=== PATIENT | female | born 1960 | race Caucasian/White ===

== ENCOUNTER 2016-12-09 15:41 | Inpatient (IN) ==
[2016-12-09] MEDS ORDERED: Ipratropium/Albuterol Neb 3 ML IH ONE ×2 (16:06→19:55)
[2016-12-09] MEDS ORDERED: methylPREDNISolone 125 MG/2 ML VIAL IVP ONE (16:06)
--- NOTE | 2016-12-09 16:11 | Emergency Department Note ---
Disposition Clinical Impression: COPD exacerbation Chest pain Qualifiers: Chest pain type: unspecified Qualified Code(s): R07.9 - Chest pain, unspecified Disposition: Admitted As Inpatient Condition: Fair Referrals: Jarod Hilton MD [Primary Care Provider] - Forms: ED Satisfaction Letter Time of Disposition: 18:18 SOB HPI - General Chief Complaint: ED Shortness of Breath/Dyspnea Stated Complaint: Cough and SOB Time Seen by Provider: 12/09/16 15:58 Source: patient Limitations: no limitations Nursing Notes Reviewed: Yes Vital Signs Reviewed: Yes - History of Present Illness Patient is a 56-year-old female who presents to [facility] ED with chief concern for difficulty breathing. States her symptoms have worsened over the last day. She has had a continuous cough and shortness of breath ever since she was hospitalized and then seen at the urgent care. States she has been on steroids for a long time now and has many inhalers at home for her COPD. She has not on any home oxygen. Patient states over the last day, she has had a lot of coughing fits and has trouble just walking a few feet. He has also been having some central chest pain that is described as "an elephant sitting on my chest or being smothered by a pillow". States this has been worse over the last 3-4 days but has also been intermittent over the last several months. Patient has had 3 prior heart catheterizations, most recent of which was 1-2 years ago. States they do not find anything to stent. Denies any nausea, vomiting, fever or chills. Patient was hospitalized back in October for her COPD exacerbation. She was then seen at urgent care on November 21 and prescribed azithromycin and steroids. States nothing has helped and she just started getting worse yesterday. Pt Subjective Complaint: shortness of breath, cough Onset (ago): day(s) Context: recent illness, occurred during exertion Severity: severe Consistency/Duration: gradually worsening Improves with: nothing Worsens with: exertion Known history of: COPD, asthma Associated symptoms: Reports: chest pain, cough. Denies: nausea/vomiting Treatment prior to arrival: none Cough present: Yes Cough Description: Involuntary, Hacking Cough Frequency: Continuous Sputum production: No Sputum Amount: None - Related Data Home oxygen amount: none Home Medications Medication Instructions Recorded Confirmed Albuterol Sulfate [Ventolin Hfa] 2 puff IH DAILY PRN 08/16/15 08/12/16 FLUoxetine HCl [Prozac] 20 mg PO DAILY 05/07/16 08/12/16 Omalizumab [XOLAIR (For Outpatient 150 mg SQ Q2W 05/11/16 08/12/16 Infusion)] Alprazolam [Xanax 0.5 MG Tablet] 0.5 mg PO TID 11/21/16 11/21/16 Furosemide [Lasix] 20 mg PO DAILY 11/21/16 11/21/16 Ipratropium/Albuterol Neb [Duoneb] 3 ml IH Q4HR 11/21/16 11/21/16 Dexlansoprazole [Dexilant] 30 mg PO DAILY 12/09/16 12/09/16 Fluticasone/Salmeterol [Advair 1 each IH BID 12/09/16 12/09/16 250-50 Diskus] Montelukast [Singulair] 10 mg PO QPM 12/09/16 12/09/16 Tizanidine HCl 4 mg PO TID PRN 12/09/16 12/09/16 Previous Rx's Medication Instructions Recorded Tiotropium [Spiriva] 18 mcg IH 0700 #30 capsule 08/18/15 Allergies Allergy/AdvReac Type Severity Reaction Status Date / Time aspirin Allergy Mild Wheezing Verified 12/09/16 15:50 milk Allergy See Verified 12/09/16 15:50 Comments Pneumococcal Vaccine AdvReac Anxiety Verified 12/09/16 15:50 quetiapine [From Seroquel] AdvReac Agitated Verified 12/09/16 15:50 All systems ED: reviewed and negative except as stated. Past Medical History - Past Medical History Attestation: Yes The following information was validated with the patient. 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 - Social History Smoking Status: Never smoker Smokeless Tobacco Status: No Alcohol use: Reports: none Drug use: Reports: none Physical Exam - General Limitations: no limitations General appearance: alert, in no apparent distress - Head Head exam: atraumatic, normocephalic, normal inspection - Eye Eye exam: Present: normal appearance, PERRL, EOMI - ENT ENT exam: normal exam, normal oropharynx, mucous membranes moist - Neck Neck exam: Present: normal inspection, full ROM, trachea midline - Chest Chest inspection: Present: normal inspection, symmetric chest wall rise - Respiratory Respiratory exam: Present: wheezes (Diffusely) - Cardiovascular Cardiovascular exam: Present: regular rate, normal rhythm - Abdominal Exam Abdominal exam: Present: soft, Non-Tender. Absent: tenderness, distention, guarding, rebound, rigidity - Extremities Exam Extremities exam: Present: normal inspection, full ROM. Absent: tenderness, pedal edema - Back Exam Back exam: Present: normal inspection, full ROM. Absent: tenderness - Neurological Exam Neurological exam: Present: alert, oriented X3 - Psychiatric Psychiatric exam: Present: normal affect, normal mood - Skin Skin exam: Present: warm, dry, intact, normal color Course Course Narrative: Patient seen and examined. Cough with history of COPD and asthma. One recent hospitalization as well as visit to urgent care. Patient has been on multiple doses of antibiotics and prednisone over the last several months. Also having worsening chest pressure. Cardiopulmonary workup initiated. We will give triple DuoNeb treatment and 125 mg of Solu-Medrol. - Reevaluation(s) Reevaluation #1: Patient received her DuoNeb treatments. On reevaluation, she is still wheezing diffusely bilaterally and very tight. Her oxygen saturation are still around 90 %. With concern for this hypoxemia and her failing outpatient treatment, will admit to hospitalist service for COPD exacerbation and chest pain rule out ACS. I spoke with the hospitalist Yanna Kelly who has accepted patient for admission. Time: 18:17 Vital Signs Temperature 97.8 F 12/09/16 15:45 Pulse Rate 110 12/09/16 15:45 Respiratory Rate 18 12/09/16 15:45 Blood Pressure 144/98 12/09/16 15:45 O2 Sat by Pulse Oximetry 92 L 12/09/16 15:45 Temperature 97.8 F 12/09/16 15:45 Pulse Rate 110 12/09/16 15:45 Respiratory Rate 18 12/09/16 17:06 Blood Pressure 144/98 12/09/16 15:45 O2 Sat by Pulse Oximetry 92 L 12/09/16 17:06 Oxygen Delivery Oxygen Delivery Room Air Shortness of Breath/Dyspnea - Medical Records Medical records reviewed: Yes I reviewed the patient's medical records. - Lab Data Lab results reviewed: Yes I reviewed the patient's lab results. Result diagrams: 12/09/16 16:25 12/09/16 16:25 Lab Results 12/09/16 12/09/16 12/09/16 Range/Units 16:25 16:25 16:25 WBC 7.6 (4.3-11.1) K/mcL RBC 5.07 H (3.82-4.97) M/mcL Hgb 13.3 (11.5-15.4) g/dL Hct 40.8 (35.3-44.9) % MCV 80.5 L (83.0-100.0) fL MCH 26.2 L (28.0-33.3) pg MCHC 32.6 (31.6-35.5) g/dL RDW 13.5 (11.5-14.5) % Plt Count 220 (140-400) K/mcL MPV 10.8 (9.4-12.4) fL Immature Gran % 0.4 (0-4) % Seg Neutrophils % 55.5 % Lymphocytes % 31.7 % Monocytes % 5.8 % Eosinophils % 5.9 % Basophils % 0.7 % Neutrophils # 4.2 (1.6-8.9) K/mcL Lymphocytes # 2.4 (0.6-4.6) K/mcL Monocytes # 0.4 (0.0-1.3) K/mcL Eosinophils # 0.5 (0.0-0.6) K/mcL Basophils # 0.1 (0.0-0.2) K/mcL D-Dimer (0-500) ng/mLFEU Sodium 141 (136-145) mEq/L Potassium 3.9 (3.5-4.5) mEq/L Chloride 108 (98-109) mEq/L Carbon Dioxide 22 (19-29) mEq/L BUN 10 (7-20) mg/dL Creatinine 0.86 (0.57-1.11) mg/dL Est GFR ( Amer) > 60 (> 60) Est GFR (Non-Af Amer) > 60 (> 60) BUN/Creatinine Ratio 12 (6-26) Glucose 87 (70-99) mg/dL Calculated Osmolality 290 (280-300) Lactic Acid (0.5-2.2) mmol/L Calcium 8.6 (8.6-10.8) mg/dL Troponin I 0.01 (0-0.03) ng/mL B-Natriuretic Peptide (0-100) pg/mL 12/09/16 12/09/16 12/09/16 Range/Units 16:25 16:25 16:41 WBC (4.3-11.1) K/mcL RBC (3.82-4.97) M/mcL Hgb (11.5-15.4) g/dL Hct (35.3-44.9) % MCV (83.0-100.0) fL MCH (28.0-33.3) pg MCHC (31.6-35.5) g/dL RDW (11.5-14.5) % Plt Count (140-400) K/mcL MPV (9.4-12.4) fL Immature Gran % (0-4) % Seg Neutrophils % % Lymphocytes % % Monocytes % % Eosinophils % % Basophils % % Neutrophils # (1.6-8.9) K/mcL Lymphocytes # (0.6-4.6) K/mcL Monocytes # (0.0-1.3) K/mcL Eosinophils # (0.0-0.6) K/mcL Basophils # (0.0-0.2) K/mcL D-Dimer 449 (0-500) ng/mLFEU Sodium (136-145) mEq/L Potassium (3.5-4.5) mEq/L Chloride (98-109) mEq/L Carbon Dioxide (19-29) mEq/L BUN (7-20) mg/dL Creatinine (0.57-1.11) mg/dL Est GFR ( Amer) (> 60) Est GFR (Non-Af Amer) (> 60) BUN/Creatinine Ratio (6-26) Glucose (70-99) mg/dL Calculated Osmolality (280-300) Lactic Acid 1.1 (0.5-2.2) mmol/L Calcium (8.6-10.8) mg/dL Troponin I (0-0.03) ng/mL B-Natriuretic Peptide 27 (0-100) pg/mL - Radiology Data Radiology results reviewed: Yes I reviewed the patient's radiology results. Chest X-Ray 12/09/16 16:08 IMPRESSION: No acute cardiopulmonary disease is identified. D/ / Cordell Dong MD / Cordell Dong MD Interpreting Provider: Cordell Dong MD - EKG Data EKG attestation: Yes I reviewed and interpreted this EKG. EKG results narrative: EKG done at 1556 shows normal sinus rhythm with a rate of [address] elevation or depression. Patient has T-wave inversion in lead V2, III. Low voltage throughout.
[2016-12-09 16:37] LABS: Basophils # 0.1 K/mcL (0.0-0.2); Basophils % 0.7 %; Eosinophils # 0.5 K/mcL (0.0-0.6); Eosinophils % 5.9 %; Hematocrit 40.8 % (35.3-44.9); Hemoglobin 13.3 g/dL (11.5-15.4); Immature Granulocytes % 0.4 % (0-4); Lymphocytes # 2.4 K/mcL (0.6-4.6); Lymphocytes % 31.7 %; Mean Corpuscular HGB Conc 32.6 g/dL (31.6-35.5); Mean Corpuscular Hemoglobin 26.2 pg (28.0-33.3); Mean Corpuscular Volume 80.5 fL (83.0-100.0); Mean Platelet Volume 10.8 fL (9.4-12.4); Monocytes # 0.4 K/mcL (0.0-1.3); Monocytes % 5.8 %; Neutrophils # 4.2 K/mcL (1.6-8.9); Platelet Count 220 K/mcL (140-400); Red Blood Count 5.07 M/mcL (3.82-4.97); Red Cell Distribution Width 13.5 % (11.5-14.5); Segmented Neutrophils % 55.5 %
--- NOTE | 2016-12-09 16:45 | Emergency Department Note ---
Disposition Clinical Impression: COPD exacerbation, Chest pain Disposition: Admitted As Inpatient Condition: Fair General Adult HPI - General Chief complaint: ED Shortness of Breath/Dyspnea Stated complaint: Cough and SOB Time Seen by Provider: 12/09/16 15:58 Source: patient Limitations: no limitations - History of Present Illness Pain Scale: 7 - Related Data Home Medications Medication Instructions Recorded Confirmed Albuterol Sulfate [Ventolin Hfa] 2 puff IH Q4H PRN 08/16/15 12/09/16 FLUoxetine HCl [Prozac] 20 mg PO QAM 05/07/16 12/09/16 Omalizumab [XOLAIR (For Outpatient 150 mg SQ Q2W 05/11/16 08/12/16 Infusion)] Alprazolam [Xanax 0.5 MG Tablet] 0.5 mg PO TID 11/21/16 12/09/16 Furosemide [Lasix] 20 mg PO DAILY 11/21/16 12/09/16 Ipratropium/Albuterol Neb [Duoneb] 3 ml IH Q6H PRN 11/21/16 12/09/16 Dexlansoprazole [Dexilant] 30 mg PO DAILY 12/09/16 12/09/16 Fluticasone/Salmeterol [Advair 1 each IH BID 12/09/16 12/09/16 250-50 Diskus] Montelukast [Singulair] 10 mg PO QPM 12/09/16 12/09/16 Tizanidine HCl 4 mg PO TID PRN 12/09/16 12/09/16 Previous Rx's Medication Instructions Recorded Tiotropium [Spiriva] 18 mcg IH 0700 #30 capsule 08/18/15 Allergies Allergy/AdvReac Type Severity Reaction Status Date / Time aspirin Allergy Mild Wheezing Verified 12/09/16 15:50 milk Allergy See Verified 12/09/16 15:50 Comments Pneumococcal Vaccine AdvReac Anxiety Verified 12/09/16 15:50 quetiapine [From Seroquel] AdvReac Agitated Verified 12/09/16 15:50 Past Medical History - Past Medical History Medical history: Reports: asthma, COPD, GERD Surgical history: Reports: cholecystectomy, sinus surgery, CHARBEL/BSO, other Psychiatric history: Reports: anxiety, bipolar, depression, panic disorder 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 Hawthorne. The patient presents with shortness of breath, cough, and wheezing. She states that she has been sick since around . She is been seen at several hospitals. She has been admitted for this issue already. She has had a CTA of the chest for this issue which was negative. She saw pulmonology the beginning of this month and had PFTs. She presents today with the cough, shortness of breath, and wheezing and finds this constellation of symptoms to be significantly impacting her ADLs. On my physical examination she has got diffuse wheezing and frequent cough with inspiration. The PFTs imply a COPD type pattern. Clinical presentation seems consistent with a COPD exacerbation as a result of a likely viral illness given that the patient is complaining of postnasal drainage and sinus congestion and blowing her nose a lot within the last 24 hours. I am concerned she may require admission to the hospital given the severity of her symptoms. We will have to see how she responds to breathing treatments and what the lab workup shows us. Disposition will be based on diagnostic results and reevaluation. Time: 16:45 Vital Signs Temperature 97.8 F 12/09/16 15:45 Pulse Rate 110 12/09/16 15:45 Respiratory Rate 18 12/09/16 15:45 Blood Pressure 144/98 12/09/16 15:45 O2 Sat by Pulse Oximetry 92 L 12/09/16 15:45 Temperature 97.8 F 12/09/16 15:45 Pulse Rate 110 12/09/16 15:45 Respiratory Rate 16 12/09/16 20:00 Blood Pressure 138/88 12/09/16 20:00 O2 Sat by Pulse Oximetry 92 L 12/09/16 17:06 Oxygen Delivery Oxygen Delivery Room Air Medical Decision Making - Lab Data Result diagrams: 12/09/16 16:25 12/09/16 16:25 Lab Results 12/09/16 12/09/16 12/09/16 Range/Units 16:25 16:25 16:25 WBC 7.6 (4.3-11.1) K/mcL RBC 5.07 H (3.82-4.97) M/mcL Hgb 13.3 (11.5-15.4) g/dL Hct 40.8 (35.3-44.9) % MCV 80.5 L (83.0-100.0) fL MCH 26.2 L (28.0-33.3) pg MCHC 32.6 (31.6-35.5) g/dL RDW 13.5 (11.5-14.5) % Plt Count 220 (140-400) K/mcL MPV 10.8 (9.4-12.4) fL Immature Gran % 0.4 (0-4) % Seg Neutrophils % 55.5 % Lymphocytes % 31.7 % Monocytes % 5.8 % Eosinophils % 5.9 % Basophils % 0.7 % Neutrophils # 4.2 (1.6-8.9) K/mcL Lymphocytes # 2.4 (0.6-4.6) K/mcL Monocytes # 0.4 (0.0-1.3) K/mcL Eosinophils # 0.5 (0.0-0.6) K/mcL Basophils # 0.1 (0.0-0.2) K/mcL D-Dimer (0-500) ng/mLFEU Sodium 141 (136-145) mEq/L Potassium 3.9 (3.5-4.5) mEq/L Chloride 108 (98-109) mEq/L Carbon Dioxide 22 (19-29) mEq/L BUN 10 (7-20) mg/dL Creatinine 0.86 (0.57-1.11) mg/dL Est GFR ( Amer) > 60 (> 60) Est GFR (Non-Af Amer) > 60 (> 60) BUN/Creatinine Ratio 12 (6-26) Glucose 87 (70-99) mg/dL Calculated Osmolality 290 (280-300) Lactic Acid (0.5-2.2) mmol/L Calcium 8.6 (8.6-10.8) mg/dL Troponin I 0.01 (0-0.03) ng/mL B-Natriuretic Peptide (0-100) pg/mL 12/09/16 12/09/16 12/09/16 Range/Units 16:25 16:25 16:41 WBC (4.3-11.1) K/mcL RBC (3.82-4.97) M/mcL Hgb (11.5-15.4) g/dL Hct (35.3-44.9) % MCV (83.0-100.0) fL MCH (28.0-33.3) pg MCHC (31.6-35.5) g/dL RDW (11.5-14.5) % Plt Count (140-400) K/mcL MPV (9.4-12.4) fL Immature Gran % (0-4) % Seg Neutrophils % % Lymphocytes % % Monocytes % % Eosinophils % % Basophils % % Neutrophils # (1.6-8.9) K/mcL Lymphocytes # (0.6-4.6) K/mcL Monocytes # (0.0-1.3) K/mcL Eosinophils # (0.0-0.6) K/mcL Basophils # (0.0-0.2) K/mcL D-Dimer 449 (0-500) ng/mLFEU Sodium (136-145) mEq/L Potassium (3.5-4.5) mEq/L Chloride (98-109) mEq/L Carbon Dioxide (19-29) mEq/L BUN (7-20) mg/dL Creatinine (0.57-1.11) mg/dL Est GFR ( Amer) (> 60) Est GFR (Non-Af Amer) (> 60) BUN/Creatinine Ratio (6-26) Glucose (70-99) mg/dL Calculated Osmolality (280-300) Lactic Acid 1.1 (0.5-2.2) mmol/L Calcium (8.6-10.8) mg/dL Troponin I (0-0.03) ng/mL B-Natriuretic Peptide 27 (0-100) pg/mL Attestation Statement - Attestation Attestation: I, Dr. Del Rio, examined this patient [id number] and my medical decision- making was reviewed with Dr. Hawthorne, Resident Physician. I agree with the documented findings, disposition and treatment plan as described except to the extent set forth below. Please see my progress notes for details.
[2016-12-09 16:52] LABS: BUN/Creatinine Ratio 12 (6-26); Blood Urea Nitrogen 10 mg/dL (7-20); Calcium 8.6 mg/dL (8.6-10.8); Carbon Dioxide 22 mEq/L (19-29); Chloride 108 mEq/L (98-109); Glucose 87 mg/dL (70-99); Osmolality,Calculated 290 (280-300); Potassium 3.9 mEq/L (3.5-4.5); Sodium 141 mEq/L (136-145); eGFR For African Americans > 60 (> 60); eGFR For Non-African Americans > 60 (> 60)
[2016-12-09] MEDS ORDERED: Naloxone 0.4 MG/ML INJ IVP PRN (22:19)
[2016-12-09] MEDS ORDERED: tiZANidine 4 MG TABLET PO PRN (22:23)
[2016-12-09] MEDS ORDERED: Albuterol 2.5 MG/3 ML NEBULIZER IH PRN (22:25)
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
[2016-12-09] MEDS: MethylPREDNISolone 40 MG/ML VIAL IVP SCH (23:44)
[2016-12-09] MEDS: Budesonide/Formoterol 160/4.5 MDI IH SCH (23:50)
[2016-12-09] MEDS: Ipratropium/Albuterol Neb 3 ML IH SCH (23:51)
[2016-12-10] MEDS: ALPRAZolam 0.5 MG TABLET PO SCH ×4 (00:39→20:43)
[2016-12-10] MEDS: Gabapentin 300 MG CAPSULE PO SCH ×3 (00:39→20:43)
[2016-12-10 00:48] LABS: Basophils % 0.2 %; Hematocrit 38.5 % (35.3-44.9); Hemoglobin 12.4 g/dL (11.5-15.4); Immature Granulocytes % 1.1 % (0-4); Immature Platelets 6.5 % (1.1-6.1); Lymphocytes # 0.8 K/mcL (0.6-4.6); Lymphocytes % 13.1 %; Mean Corpuscular HGB Conc 32.2 g/dL (31.6-35.5); Mean Corpuscular Hemoglobin 25.9 pg (28.0-33.3); Mean Corpuscular Volume 80.4 fL (83.0-100.0); Mean Platelet Volume 10.8 fL (9.4-12.4); Monocytes % 0.3 %; Neutrophils # 5.3 K/mcL (1.6-8.9); Platelet Count 208 K/mcL (140-400); Red Blood Count 4.79 M/mcL (3.82-4.97); Red Cell Distribution Width 13.5 % (11.5-14.5); Segmented Neutrophils % 85.3 %
[2016-12-10 01:05] LABS: BUN/Creatinine Ratio 11 (6-26); Blood Urea Nitrogen 10 mg/dL (7-20); Calcium 9.2 mg/dL (8.6-10.8); Carbon Dioxide 18 mEq/L (19-29); Chloride 109 mEq/L (98-109); Glucose 204 mg/dL (70-99); Osmolality,Calculated 295 (280-300); Potassium 4.1 mEq/L (3.5-4.5); Sodium 140 mEq/L (136-145); eGFR For African Americans > 60 (> 60); eGFR For Non-African Americans > 60 (> 60)
[2016-12-10] MEDS: Ipratropium/Albuterol Neb 3 ML IH SCH ×5 (04:08→23:40)
[2016-12-10] MEDS: *HR* Enoxaparin 40 MG/0.4 ML SYRINGE SQ SCH (06:42)
[2016-12-10] MEDS: MethylPREDNISolone 40 MG/ML VIAL IVP SCH ×3 (07:54→23:27)
[2016-12-10] MEDS: Furosemide 20 MG TABLET PO SCH (08:50)
[2016-12-10] MEDS: FLUoxetine 20 MG CAPSULE PO SCH (08:50)
[2016-12-10] MEDS: DEXILANT 30 MG PO SCH (08:52)
[2016-12-10] MEDS ORDERED: ALPRAZolam 0.5 MG TABLET PO SCH (09:00)
[2016-12-10] MEDS: Budesonide/Formoterol 160/4.5 MDI IH SCH ×2 (10:42→20:10)
[2016-12-10] MEDS: Tiotropium 18 MCG inhalation IH SCH (10:42)
[2016-12-10] MEDS ORDERED: Acetaminophen 325 MG TABLET PO PRN ×2 (12:17→14:57)
[2016-12-10] MEDS ORDERED: *HR* Morphine 2 MG/ML SYRINGE IVP PRN (14:56)
[2016-12-10] MEDS ORDERED: *HR* HYDROcodone/Acet 5/325 mg TABLET PO PRN (14:56)
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
--- NOTE | 2016-12-10 20:35 | Electrocardiograph Report ---
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
[2016-12-11] MEDS: Ipratropium/Albuterol Neb 3 ML IH SCH ×3 (03:36→11:33)
[2016-12-11] MEDS: *HR* Enoxaparin 40 MG/0.4 ML SYRINGE SQ SCH (06:30)
[2016-12-11 07:00] VITALS: BP 106/63
[2016-12-11] MEDS: Tiotropium 18 MCG inhalation IH SCH (07:53)
[2016-12-11] MEDS: Budesonide/Formoterol 160/4.5 MDI IH SCH (07:55)
[2016-12-11] MEDS: Gabapentin 300 MG CAPSULE PO SCH (08:18)
[2016-12-11] MEDS: Furosemide 20 MG TABLET PO SCH (08:18)
[2016-12-11] MEDS: ALPRAZolam 0.5 MG TABLET PO SCH (08:19)
[2016-12-11] MEDS: FLUoxetine 20 MG CAPSULE PO SCH (08:19)
[2016-12-11] MEDS: MethylPREDNISolone 40 MG/ML VIAL IVP SCH (08:21)
[2016-12-11] MEDS: DEXILANT 30 MG PO SCH (08:22)
--- NOTE | 2016-12-11 09:13 | Pulmonology Consult Note ---
Date of Encounter: 12/11/16 Time of Encounter: 09:25 Assessment and Plan (1) Asthma with acute exacerbation in adult Current Visit: Yes Status: Resolved This patient has history of childhood asthma and has had a pulmonary function test there is evidence of hyperresponsiveness to bronchodilators. I suspect with possible post viral infection which triggers her symptoms. As outpatient she is on appropriate bronchodilators. Discussed with primary team that she can be discharged on tapered steroids and antibiotics and follow-up as outpatient for further workup for asthma if necessary. Also advised To avoid any triggering factors with her at home or at work. She probably would need IgE level to be checked when symptoms under control and patient not on steroids. Thank you for the consult and advised patient to follow-up as outpatient. (2) ENRIQUE (obstructive sleep apnea) Current Visit: Yes Status: Chronic Patient with history of obstructive sleep apnea and she does not have a CPAP now. She understands risks associated with untreated obstructive sleep apnea and she needs workup as outpatient. History of Present Illness Consult date: 12/11/16 Requesting physician: Amie Montano Reason for consult: dyspnea, asthma, COPD Chief complaint: Shortness of breath History of present illness: This is a pleasant 56-year-old female with significant history of childhood asthma and also secondhand smoking. She has recently had pulmonary function test with evidence of obstructive airway disease mostly suggestive of asthma and she has been having problems with her breathing since July 2016. She also has noticed since she has started working in her new job, had her symptoms as worsened. 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 Varghese in [facility]. She is on bronchodilators. She also has a diagnosis of obstructive sleep apnea but she is not on treatment. Patient has productive cough, wheezing and dyspnea. She is feeling better. She had CT chest with evidence of air trapping. He does not use oxygen at home. Past Med Surg Social Fam HX - Past Medical History Medical history: asthma, COPD, GERD Psychiatric history: anxiety, bipolar, depression, panic disorder - Past Surgical History Surgical History: cholecystectomy, hysterectomy, sinus surgery, CHARBEL/BSO, other - Social History Smoking Status: Former smoker Smokeless Tobacco Status: No Alcohol use: none Drug use: none - Family History Mother Living Status: Hx Family Cardiac Disorders: Yes (Hypertension and arrhythmia) Hx Family Endocrine Disorder: Yes (Diabetes) Brother Hx Family Cardiac Disorders: Yes (major [place] at 39.) Father Adopted: [place]: Yayo Cruz Living Status: Age at : 65 Cause of : CA Lung Hx Family Cardiac Disorders: No Hx Family Respiratory Disorders: Yes (Lung Ca, States "on oxygen and nebulizer. Smoker) Hx Family Cancer: Yes Hx Family GI Disorders: No Hx Family Genitourinary Disorders: No Hx Family Endocrine Disorder: No Hx Family Musculoskeletal Disorders: Yes (Arthritis in legs) Hx Family Neuromuscular Disorders: No Hx Family Neurologic Disorders: No Hx Family HEENT Disorders: Yes (States "sinus issues") Hx Family Autoimmune Disorders: No Hx Family Reproductive Disorders: No Hx Family Psychosocial Disorders: No Hx Family Medical Disorders: Yes (Sister has Lupus, Strong Family Hx of Lung Cancer) Medications and Allergies Albuterol Sulfate [Ventolin Hfa] 2 puff IH Q4H PRN 08/16/15 [History] Tiotropium [Spiriva] 18 mcg IH 0700 #30 capsule 08/18/15 [Rx] FLUoxetine HCl [Prozac] 20 mg PO QAM 05/07/16 [History] Omalizumab [XOLAIR (For Outpatient Infusion)] 150 mg SQ Q2W 05/11/16 [History] Alprazolam [Xanax 0.5 MG Tablet] 0.5 mg PO TID 11/21/16 [History] Furosemide [Lasix] 20 mg PO DAILY 11/21/16 [History] Ipratropium/Albuterol Neb [Duoneb] 3 ml IH Q6H PRN 11/21/16 [History] Dexlansoprazole [Dexilant] 30 mg PO DAILY 12/09/16 [History] Fluticasone/Salmeterol [Advair 250-50 Diskus] 1 each IH BID 12/09/16 [History] Montelukast [Singulair] 10 mg PO QPM 12/09/16 [History] Tizanidine HCl 4 mg PO TID PRN 12/09/16 [History] Gabapentin [Neurontin] 300 mg PO BID 12/10/16 [History] Allergies aspirin Allergy (Mild, Verified 12/09/16 15:50) Wheezing milk Allergy (Verified 12/09/16 15:50) See Comments Pneumococcal Vaccine Adverse Reaction (Verified 12/09/16 15:50) Anxiety quetiapine [From Seroquel] Adverse Reaction (Verified 12/09/16 15:50) Agitated All Systems: A 10-system review of systems was performed and is negative for pertinent findings except as documented above in the HPI. Physical Examination Vital Signs: Vital Signs, Last 4 Hours Temp Pulse Resp BP Pulse Ox 12/11/16 07:56 18 95 12/11/16 06:59 97.8 F 89 18 106/63 95 General appearance: no acute distress Eyes: nonicteric ENT: oropharynx moist Mallampati (class): 4 Neck: supple Effort: normal Inspection: normal Auscultation: bilateral: wheezes Percussion: bilateral: not dull Cardiovascular: regular rate and rhythm Gastrointestinal: normoactive bowel sounds, non-distended Extremities: no cyanosis, no edema normal mental status, non-focal exam mood appropriate Results - Laboratory Findings CBC and BMP: 12/10/16 00:20 12/10/16 00:20 PT/INR, D-dimer D-Dimer 449 ng/mLFEU (0-500) 12/09/16 16:25 Abnormal lab findings: Abnormal lab results MCV 80.4 fL (83.0-100.0) L 12/10/16 00:20 MCH 25.9 pg (28.0-33.3) L 12/10/16 00:20 Immature Plt Fraction 6.5 % (1.1-6.1) H 12/10/16 00:20 Carbon Dioxide 18 mEq/L (19-29) L 12/10/16 00:20 Glucose 204 mg/dL (70-99) H 12/10/16 00:20 - Diagnostic Findings CT scan - chest: report reviewed, image reviewed - Clinical Findings Intake & Output: Intake & Output 12/10/16 12/11/16 12/11/16 23:59 07:59 15:59 Intake Total 240 / 240 Balance 240 / 240 Consult Discharge Plan - Plan Referrals: Jarod Hilton MD [Primary Care Provider] - 12/16/16 10:00 am
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
[2016-12-16 11:33] LABS: Aspergillus Ab by CF <1:8 (<1:8)
[2016-12-17 07:10] LABS: Aspergillus fumigatus IgE <0.10 kU/L (<=0.34)
== END 2016-12-11 11:45 | disposition home or self-care (01) | DRG 191 ==
LOC: EMEROO 15:41 → 3BNU 15:41
PROVIDERS: ADMIT Nurse Practitioner Family; ATTEND Nurse Practitioner Family

== ENCOUNTER 2017-05-12 09:07 | Observation (INO) ==
--- NOTE | 2017-05-12 09:32 | Emergency Department Note ---
Disposition Clinical Impression: Shortness of breath, COPD exacerbation Chest pain Qualifiers: Chest pain type: other chest pain Qualified Code(s): R07.89 - Other chest pain Disposition: Admitted As Inpatient Condition: Good Time of Disposition: 11:39 General Adult HPI - General Chief complaint: ED Chest Pain Stated complaint: YSABEL/chest pain Time Seen by Provider: 05/12/17 09:20 Source: patient Limitations: no limitations Nursing Notes Reviewed: Yes Vital Signs Reviewed: Yes - History of Present Illness HPI Narrative: 2 week history of chest pain. Increasing dyspnea on exertion. Shortness of breath currently. Associated nausea. The pain is a intermittent sharp pain but a constant tightness. It does not radiate. Pain Scale: 8 - Related Data Home Medications Medication Instructions Recorded Confirmed Albuterol Sulfate [Ventolin Hfa] 2 puff IH Q4H PRN 08/16/15 05/12/17 FLUoxetine HCl [Prozac] 20 mg PO QAM 05/07/16 05/12/17 ALPRAZolam [Xanax 0.5 MG Tablet] 0.5 mg PO QID 11/21/16 05/12/17 Furosemide [Lasix] 20 mg PO DAILY PRN 11/21/16 05/12/17 Ipratropium/Albuterol Neb [Duoneb] 3 ml IH Q6H PRN 11/21/16 05/12/17 Dexlansoprazole [Dexilant] 30 mg PO DAILY 12/09/16 05/12/17 Gabapentin [Neurontin] 300 mg PO BID 12/10/16 05/12/17 Budesonide/Formoterol 160/4.5 2 puff IH BIDR 05/12/17 05/12/17 [Symbicort 160/4.5] Losartan Potassium [Cozaar] 100 mg PO DAILY 05/12/17 05/12/17 Nitroglycerin [Nitrostat] 0.4 mg SL Q5M PRN 05/12/17 05/12/17 Previous Rx's Medication Instructions Recorded Promethazine [Phenergan] 25 mg PO Q6HR PRN #16 tablet 04/07/17 Allergies Allergy/AdvReac Type Severity Reaction Status Date / Time aspirin Allergy Mild Wheezing Verified 05/12/17 09:10 milk Allergy See Verified 05/12/17 09:10 Comments Pneumococcal Vaccine AdvReac Anxiety Verified 05/12/17 09:10 quetiapine [From Seroquel] AdvReac Agitated Verified 05/12/17 09:10 All systems ED: reviewed and negative except as stated. Constitutional: Denies: fever, chills Cardiovascular: Reports: chest pain, dyspnea on exertion. Denies: palpitations , syncope Respiratory: Reports: cough, dyspnea, wheezes. Denies: sputum production Gastrointestinal: Denies: abdominal pain, nausea, vomiting, diarrhea Genitourinary: Denies: urgency, dysuria, frequency, hematuria Musculoskeletal: Denies: back pain, neck pain Integumentary: Denies: rash Neurological: Denies: headache, weakness, numbness, paresthesias Past Medical History - Past Medical History Attestation: Yes The following information was validated with the patient. 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 Absent: scleral icterus - ENT ENT exam: normal exam, normal oropharynx, mucous membranes moist - Neck Neck exam: Present: normal inspection, full ROM, trachea midline. Absent: tenderness, meningismus, lymphadenopathy - Chest Chest inspection: Present: normal inspection, symmetric chest wall rise - Respiratory Respiratory exam: Present: wheezes (Diffusely) - Cardiovascular Cardiovascular exam: Present: regular rate, normal rhythm, normal heart sounds - Abdominal Exam Abdominal exam: Present: soft, Non-Tender, normal bowel sounds. Absent: tenderness, distention, guarding, rebound, rigidity, organomegaly - Extremities Exam Extremities exam: Present: normal inspection, full ROM, normal capillary refill. Absent: tenderness, pedal edema - Back Exam Back exam: Present: normal inspection, full ROM. Absent: tenderness - Neurological Exam Neurological exam: Present: alert, oriented X3 - Psychiatric Psychiatric exam: Present: normal affect, normal mood - Skin Skin exam: Present: warm, dry, intact, normal color Course Course Narrative: Female patient presenting to the emergency department complaining of chest pain that began last night. She describes it as a weight on her chest. She does have associated cough and wheeze with this. She states she does have a history of COPD. Patient denies any nausea or vomiting associated with this. She denies any associated diaphoresis. Initially she denies any radiation of the pain. She states that she does have pain in her back as well however. Denies any abdominal pain nausea vomiting or diarrhea. She is resting comfortably but has wheezing throughout. We have ordered a DuoNeb. She is agreeable to take aspirin she states this is not a true allergy she is just been told to not take it while she is having her COPD flares. She states she does have a cough but is nonproductive. Her lunch under wheezing heart tones are normal. Abdomen is soft and nontender on exam. We will do a cardiac workup On patient and do a nitroglycerin trial. Stated she did get relief with one nitroglycerin. She is also complaining of increasing shortness of breath. She states that she has dyspnea on exertion. - Reevaluation(s) Reevaluation #1: Patient reevaluated. She states the initial nitroglycerin did help with her chest pain however it is now on her back and radiates to her right arm. We have ordered a repeat EKG. There are no significant changes on this. We performed a repeat nitroglycerin trial which relieved patient's pain again. We will admit patient to the hospital for possible COPD exacerbation and her chest pain to rule out ACS. She is agreeable to this. Time: 11:30 Vital Signs Temperature 98.1 F 05/12/17 09:10 Pulse Rate 82 05/12/17 09:10 Respiratory Rate 24 05/12/17 09:10 Blood Pressure 174/88 05/12/17 09:10 O2 Sat by Pulse Oximetry 96 05/12/17 09:10 Temperature 98.1 F 05/12/17 09:10 Pulse Rate 67 05/12/17 11:09 Respiratory Rate 05/12/17 11:53 Blood Pressure 151/94 05/12/17 11:53 O2 Sat by Pulse Oximetry 97 05/12/17 10:51 Oxygen Delivery Oxygen Delivery Nasal Cannula Medical Decision Making - Medical Records Medical records reviewed: Yes I reviewed the patient's medical records. - Lab Data Lab results reviewed: Yes I reviewed the patient's lab results. Result diagrams: 05/12/17 09:43 05/12/17 09:43 Lab Results 05/12/17 05/12/17 05/12/17 Range/Units 09:43 09:43 09:43 WBC 5.9 (4.3-11.1) K/mcL RBC 4.92 (3.82-4.97) M/mcL Hgb 12.3 (11.5-15.4) g/dL Hct 38.8 (35.3-44.9) % MCV 78.9 L (83.0-100.0) fL MCH 25.0 L (28.0-33.3) pg MCHC 31.7 (31.6-35.5) g/dL RDW 13.8 (11.5-14.5) % Plt Count 213 (140-400) K/mcL MPV 10.8 (9.4-12.4) fL Immature Gran % 0.2 (0-4) % Seg Neutrophils % 55.3 % Lymphocytes % 30.9 % Monocytes % 6.7 % Eosinophils % 6.0 % Basophils % 0.9 % Neutrophils # 3.3 (1.6-8.9) K/mcL Lymphocytes # 1.8 (0.6-4.6) K/mcL Monocytes # 0.4 (0.0-1.3) K/mcL Eosinophils # 0.4 (0.0-0.6) K/mcL Basophils # 0.1 (0.0-0.2) K/mcL PT 10.9 (9.4-12.1) Seconds INR 1.0 APTT 30.9 (26.0-36.0) Seconds D-Dimer 495 (0-500) ng/mLFEU Sodium (136-145) mEq/L Potassium (3.5-4.5) mEq/L Chloride (98-109) mEq/L Carbon Dioxide (19-29) mEq/L BUN (7-20) mg/dL Creatinine (0.57-1.11) mg/dL Est GFR ( Amer) (> 60) Est GFR (Non-Af Amer) (> 60) BUN/Creatinine Ratio (6-26) Glucose (70-99) mg/dL Calculated Osmolality (280-300) Calcium (8.6-10.8) mg/dL Troponin I (0-0.03) ng/mL B-Natriuretic Peptide 31 (0-100) pg/mL 05/12/17 05/12/17 Range/Units 09:43 09:43 WBC (4.3-11.1) K/mcL RBC (3.82-4.97) M/mcL Hgb (11.5-15.4) g/dL Hct (35.3-44.9) % MCV (83.0-100.0) fL MCH (28.0-33.3) pg MCHC (31.6-35.5) g/dL RDW (11.5-14.5) % Plt Count (140-400) K/mcL MPV (9.4-12.4) fL Immature Gran % (0-4) % Seg Neutrophils % % Lymphocytes % % Monocytes % % Eosinophils % % Basophils % % Neutrophils # (1.6-8.9) K/mcL Lymphocytes # (0.6-4.6) K/mcL Monocytes # (0.0-1.3) K/mcL Eosinophils # (0.0-0.6) K/mcL Basophils # (0.0-0.2) K/mcL PT (9.4-12.1) Seconds INR APTT (26.0-36.0) Seconds D-Dimer (0-500) ng/mLFEU Sodium 142 (136-145) mEq/L Potassium 3.6 (3.5-4.5) mEq/L Chloride 109 (98-109) mEq/L Carbon Dioxide 25 (19-29) mEq/L BUN 8 (7-20) mg/dL Creatinine 0.87 (0.57-1.11) mg/dL Est GFR ( Amer) > 60 (> 60) Est GFR (Non-Af Amer) > 60 (> 60) BUN/Creatinine Ratio 9 (6-26) Glucose 87 (70-99) mg/dL Calculated Osmolality 292 (280-300) Calcium 9.1 (8.6-10.8) mg/dL Troponin I 0.00 (0-0.03) ng/mL B-Natriuretic Peptide (0-100) pg/mL - Radiology Data Radiology results reviewed: Yes I reviewed the patient's radiology results. Chest X-Ray 05/12/17 09:32 IMPRESSION: No evidence for acute cardiopulmonary process. D/ / 05/12/2017 10:25:02 Mathew Mcintyre MD / vijay Interpreting Provider: Mathew Mcintyre MD - EKG Data EKG #1 EKG attestation: Yes I reviewed and interpreted this EKG. EKG results narrative: Normal sinus rhythm at a rate of 77. MT interval is 163. Respirations 122. QT is 378. QTC is 4. No signs of acute ischemia. No significant change from previous EKG dated 04/08/2017. EKG #2 EKG attestation: Yes I reviewed and interpreted this EKG. EKG results narrative: Normal sinus rhythm 169. MT interval 171. Respiration is 102. QT is 49. QTC is 428. No significant change from EKG done earlier today. No signs of ischemia. Attestation Statement - Attestation Attestation: I, Justin Quiroga, examined this patient and my medical decision-making was reviewed with the CONTOUR GRINDER/PA/Advanced Practice Nurse/Resident Physician. I agree with the documented findings, disposition and treatment plan as described except to the extent set forth below. 56-year-old female presents with concerns of difficulty in breathing and chest pain. Patient states the pain is sternal radiates to her right shoulder. She does have a history of COPD and this feels somewhat similar as her breathing has worsened over the past few days. Patient denies fever, chills, vomiting, diarrhea. Initial troponin negative. Physical exam showed mild wheezing in the bilateral posterior lung montero. Unable to reproduce pain with palpation of the chest. EKG shows normal sinus rhythm with a rate of 72 without evidence of STEMI. Repeat EKG showed normal sinus rhythm with a rate of 69 without evidence of STEMI. Patient states she felt mildly improved after breathing treatment in the emergency department. Patient will be admitted to the hospital for further care and evaluation of her chest pain.
[2017-05-12 09:50] LABS: Basophils # 0.1 K/mcL (0.0-0.2); Basophils % 0.9 %; Eosinophils # 0.4 K/mcL (0.0-0.6); Hematocrit 38.8 % (35.3-44.9); Hemoglobin 12.3 g/dL (11.5-15.4); Immature Granulocytes % 0.2 % (0-4); Lymphocytes # 1.8 K/mcL (0.6-4.6); Lymphocytes % 30.9 %; Mean Corpuscular HGB Conc 31.7 g/dL (31.6-35.5); Mean Corpuscular Volume 78.9 fL (83.0-100.0); Mean Platelet Volume 10.8 fL (9.4-12.4); Monocytes # 0.4 K/mcL (0.0-1.3); Monocytes % 6.7 %; Neutrophils # 3.3 K/mcL (1.6-8.9); Platelet Count 213 K/mcL (140-400); Red Blood Count 4.92 M/mcL (3.82-4.97); Red Cell Distribution Width 13.8 % (11.5-14.5); Segmented Neutrophils % 55.3 %
[2017-05-12] MEDS: Nitroglycerin 0.4 MG TAB.SUBL SL ONE ×2 (09:52→11:12)
[2017-05-12 09:59] LABS: Prothrombin Time 10.9 Seconds (9.4-12.1)
[2017-05-12 10:01] LABS: Activated Partial Thrombo Time 30.9 Seconds (26.0-36.0)
[2017-05-12 10:05] LABS: BUN/Creatinine Ratio 9 (6-26); Blood Urea Nitrogen 8 mg/dL (7-20); Calcium 9.1 mg/dL (8.6-10.8); Carbon Dioxide 25 mEq/L (19-29); Chloride 109 mEq/L (98-109); Glucose 87 mg/dL (70-99); Osmolality,Calculated 292 (280-300); Potassium 3.6 mEq/L (3.5-4.5); Sodium 142 mEq/L (136-145); eGFR For African Americans > 60 (> 60); eGFR For Non-African Americans > 60 (> 60)
[2017-05-12] MEDS ORDERED: Ipratropium/Albuterol Neb 3 ML IH ONE (10:08)
[2017-05-12] MEDS ORDERED: Aspirin 81 MG TAB.CHEW PO STA (10:08)
--- NOTE | 2017-05-12 11:57 | Internal Med History&Physical ---
<Gala Villegas - Last Filed: 05/12/17 14:26> Date of Encounter: 05/12/17 Time of Encounter: 11:55 Assessment and Plan (1) Chest pain Current visit: Yes Status: Acute Atypical chest pain Patient had onset of central cp with radiation to right arm, left jaw and b/l shoulder blades at rest Began yesterday evening and persisted. Relieved with nitro, ASA EKG shows SR, no ST elevations or depressions, trop negative Pain returned and received second dose of nitro and ASA, pain resolved Patient has had 2-3 LHCs that were negative in the past, the last one about 5 years ago. Has also had numerous stress tests. Will do ACS r/o on patient. Will start high intensity statin, trend trops, ECHO , stress test. If this is negative will scale back statin dosing. Will hold ASA as she has an allergy noted with wheezing, pt wheezing in ED after ASA in ER Plan: -nitro SL PRN -lipitor 80mg daily -trend trops -Tele -Cardiac diet -ECHO -Stress test in AM, npo after midnight -AM labs: BMP, CBC, lipids -GI prophylaxis: omeprazole -DVT prophylaxis: Heparin SQ Qualifiers: Chest pain type: other chest pain Qualified Code(s): R07.89 - Other chest pain; R07.8 - Other chest pain (2) Acute exacerbation of chronic obstructive airways disease Current visit: Yes Status: Acute Patient presents with severe diffuse wheezing, decreased air movement with deep breathing, cough, inability to lie flat Hx of asthma vs COPD, recent PFTs showed obstructive pattern that responded to bronchodilators Sees Dr. Morin as outpatient, is on symbicort, albuterol prn, duonebs prn Plan: -Duonebs Q4hr -Albuterol nebs Q2hr PRN -oximetry -oxygen -methylprednisolone 120mg now -prednisone 40mg PO tomorrow (3) Hypertension Current visit: Yes Status: Chronic Patient diagnosed with HTN 2 weeks ago with BP 180/100, started on losartan 100mg daily BP initially 150's, 130's after nitro, now back in 150's systolic. Goal SBP 140 or less. Plan: -Continue losartan -hydralazine 10mg Q6hr prn SBP>150 Qualifiers: Hypertension type: essential hypertension Qualified Code(s): I10 - Essential (primary) hypertension (4) Anxiety and depression Current visit: Yes Status: Chronic Chronic, continue alprazolam and fluoxetine (5) DVT prophylaxis Current visit: Yes Status: Acute Heparin SQ Internal Medicine - H&P: HPI Chief complaint: chest pain Admitted From: Emergency Dept Plans for Post Hospital Care: Home History of present illness: Ms. Ramos is a 56 year old female with a PMH of GERD, COPD, asthma, anxiety and depression, hypertension who presented to the emergency department this morning complaining of chest pain. She states that last night she laid down and it felt like someone was sitting on her chest, the pain felt like "bee stings" in her chest and back. She had trouble sleeping all night due to the pain. At 0400 she woke up and went to work at [employer]. She noted at that point that she had extreme shortness of breath when she tried to take any steps. She notes that it is extremely hard to breathe. She received nitroglycerin and aspirin upon arrival to the emergency department, which alleviated some of her pain. She later developed chest pain again she states radiated to the right arm , bilateral shoulder blades, left jaw. She has been increasingly fatigued recently, to the point where she cannot stay awake and will fall asleep as soon as she sits down. She has been chilled, sweating, had a headache, experienced some dizziness that she states feels like she is floating or that she is going to pass out, blurry vision, nausea without vomiting, lower extremity pain bilaterally, wheezing, coughing, trouble with her memory, decreased appetite, 20 pound weight gain over several months despite decreased appetite, decreased hearing in the left ear, diarrhea for the last several days. She notes that she has a stress test that is currently scheduled for May 17. She also has had 2 to 3 LHCs, the last of which was approximately 5 years ago and was negative. She has also had numerous stress tests that were all negative. There were no ST elevations or depressions noted on her EKG, initial troponin is negative. Pain relieved with nitroglycerin. Diffuse wheezing on exam. Patient is currently experiencing mild chest pain, but is In stable condition. Will admit to the hospitalist service for further evaluation of her chest pain and treatment of her wheezing. 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[employer]) Current living situation: Home, With Family Activity Level: Independent ambulation Recent Out of Country Travel Within the Last 8 Weeks: No Exposure or Possible Exposure to Illness During Travel: No - Family History Mother Age: 76 Living Status: Still Living Hx Family Cardiac Disorders: Yes (Hypertension and arrhythmia) Hx Family Endocrine Disorder: Yes (Diabetes) Brother Hx Family Cardiac Disorders: Yes (major NV at 39.) Father Adopted: No Living Status: Age at : 65 Cause of : lung cancer Hx Family Cardiac Disorders: No Hx Family Respiratory Disorders: Yes (Lung Ca, States "on oxygen and nebulizer. Smoker) Hx Family Cancer: Yes Hx Family GI Disorders: No Hx Family Endocrine Disorder: No Hx Family Neuromuscular Disorders: No Hx Family Neurologic Disorders: No Hx Family HEENT Disorders: Yes (States "sinus issues") Hx Family Autoimmune Disorders: No Internal Medicine - H&P: Meds RX: Albuterol Sulfate [Ventolin Hfa] 2 puff IH Q4H PRN 08/16/15 [History] RX: FLUoxetine HCl [Prozac] 20 mg PO QAM 05/07/16 [History] RX: ALPRAZolam [Xanax 0.5 MG Tablet] 0.5 mg PO QID 11/21/16 [History] RX: Furosemide [Lasix] 20 mg PO DAILY PRN 11/21/16 [History] RX: Ipratropium/Albuterol Neb [Duoneb] 3 ml IH Q6H PRN 11/21/16 [History] RX: Dexlansoprazole [Dexilant] 30 mg PO DAILY 12/09/16 [History] RX: Gabapentin [Neurontin] 300 mg PO BID 12/10/16 [History] Promethazine [Phenergan] 25 mg PO Q6HR PRN #16 tablet 04/07/17 [Rx] Budesonide/Formoterol 160/4.5 [Symbicort 160/4.5] 2 puff IH BIDR 05/12/17 [ History] Losartan Potassium [Cozaar] 100 mg PO DAILY 05/12/17 [History] Nitroglycerin [Nitrostat] 0.4 mg SL Q5M PRN 05/12/17 [History] 3 Allergy/AdvReac Type Severity Reaction Status Date / Time aspirin Allergy Mild Wheezing Verified 05/12/17 09:10 milk Allergy See Verified 05/12/17 09:10 Comments Pneumococcal Vaccine AdvReac Anxiety Verified 05/12/17 09:10 quetiapine [From Seroquel] AdvReac Agitated Verified 05/12/17 09:10 All Systems PM: A 10-system review of systems was performed and is negative for pertinent findings except as documented above in the HPI. - Constitutional Vitals: Temp Pulse Resp BP Pulse Ox 98.1 F 67 17 151/94 97 05/12/17 09:10 05/12/17 11:09 05/12/17 11:53 05/12/17 11:53 05/12/17 10:51 General appearance: Present: cooperative, mild distress, A&O X 3, pleasant, obese, answers questions appropriately - Head Head exam: Present: atraumatic, normal inspection, normocephalic - Eye Eye exam: Present: EOMI, normal appearance, PERRL, conjuntiva pink, sclera anicteric Pupils: Present: normal accommodation, PERRL - ENT ENT exam: Present: mucous membranes moist, normal exam, normal external ear exam - Expanded ENT Exam canal tenderness: Left TM, effusion: Bilateral TM - Neck Neck exam general surgery: Present: lymphadenopathy, tenderness, thyromegaly, supple, trachea midline. Absent: nuchal rigidity - Respiratory Respiratory exam: Present: decreased breath sounds, wheezes, tachypnea. Absent : accessory muscle use, respiratory distress - Cardiovascular Cardiovascular exam: Present: RRR, +S1, +S2. Absent: diastolic murmur, gallop, rubs, systolic murmur - GI/Abdominal GI/Abdominal exam: Present: normal bowel sounds, soft, no peritoneal signs. Absent: distended, tenderness - Extremities Exam Extremities exam: Present: calf tenderness (left), normal capillary refill, normal inspection, warm, radial pulses palpable and symmetrical. Absent: cyanotic, pedal edema - Back Exam Back exam: Present: CVA tenderness (L), CVA tenderness (R), normal inspection, tenderness. Absent: rash noted - Neurological Exam Neurological exam: Present: alert, CN II-XII intact, oriented X3, no focal deficits, strengths equal and symetr throughout. Absent: motor sensory deficit , facial droop, speech deficit - Psychiatric Psychiatric exam: Present: normal affect, normal mood - Skin Skin exam: Present: dry, intact, normal color, warm. Absent: erythema, rash Internal Med - H&P Results - Labs CBC & Chem 7: 05/12/17 09:43 05/12/17 09:43 <Roselyn Myers - Last Filed: 05/12/17 16:05> Date of Encounter: 05/12/17 Time of Encounter: 14:30 Internal Medicine - H&P: HPI History of present illness: Ms. Ramos is a 56 year old female All Systems PM: A 10-system review of systems was performed and is negative for pertinent findings except as documented above in the HPI. - Constitutional Vitals: Temp Pulse Resp BP Pulse Ox 97.9 F 67 16 145/76 94 05/12/17 15:39 05/12/17 15:39 05/12/17 15:39 05/12/17 15:39 05/12/17 15:39 Internal Med - H&P Results - Labs CBC & Chem 7: 05/12/17 09:43 05/12/17 09:43 Labs: Cardiac Enzymes 05/12/17 Range/Units 14:13 Troponin I 0.00 (0-0.03) ng/mL - Attending Attestation Patient independently seen and examined at bedside. Admitted for evaluation of chest pain and dyspnea secondary to COPD exacerbation. Will trend serial TNI, tele monitoring, Nitroglycerin 0.4 SL prn chest pain. NPO after midnight, nuclear stress test in am. Systemic steroids, bronchodilator support, O2 supplementation Case discussed with the resident physician Marilee Villegas, I agree with her documented findings, assessment, and plan.
[2017-05-12] MEDS ORDERED: Naloxone 0.4 MG/ML INJ IVP PRN (12:08)
[2017-05-12] MEDS ORDERED: Ondansetron 4 MG/2 ML VIAL IVP PRN (12:08)
[2017-05-12] MEDS ORDERED: *HR* HYDROcodone/Acet 5/325 mg TABLET PO PRN (12:08)
[2017-05-12] MEDS ORDERED: Acetaminophen 325 MG TABLET PO PRN (12:08)
[2017-05-12] MEDS ORDERED: Albuterol 2.5 MG/3 ML NEBULIZER IH PRN (12:23)
[2017-05-12] MEDS ORDERED: methylPREDNISolone 125 MG/2 ML VIAL IVP ONE ×2 (12:42)
[2017-05-12] MEDS: *HR* Morphine 2 MG/ML SYRINGE IVP PRN ×2 (12:48→20:23)
[2017-05-12] MEDS ORDERED: Furosemide 20 MG TABLET PO PRN (12:49)
[2017-05-12] MEDS: ALPRAZolam 0.5 MG TABLET PO SCH ×3 (14:16→20:24)
[2017-05-12] MEDS: *HR* Heparin 5,000 UNIT/ML VIAL SQ SCH ×2 (14:16→21:53)
[2017-05-12] MEDS: Ipratropium/Albuterol Neb 3 ML IH SCH ×3 (16:09→23:02)
[2017-05-12] MEDS: Nitroglycerin 0.4 MG TAB.SUBL SL PRN ×3 (19:53→20:15)
[2017-05-12] MEDS: Budesonide/Formoterol 160/4.5 MDI IH SCH (19:57)
[2017-05-12] MEDS: Gabapentin 300 MG CAPSULE PO SCH (20:24)
[2017-05-13] MEDS: Ipratropium/Albuterol Neb 3 ML IH SCH ×6 (03:49→23:06)
[2017-05-13 05:01] LABS: Hemoglobin 12.1 g/dL (11.5-15.4); Mean Corpuscular HGB Conc 31.8 g/dL (31.6-35.5); Mean Corpuscular Hemoglobin 25.2 pg (28.0-33.3); Mean Platelet Volume 11.8 fL (9.4-12.4); Platelet Count 211 K/mcL (140-400); Red Blood Count 4.81 M/mcL (3.82-4.97); Red Cell Distribution Width 13.7 % (11.5-14.5)
[2017-05-13 05:17] LABS: BUN/Creatinine Ratio 11 (6-26); Blood Urea Nitrogen 10 mg/dL (7-20); Calcium 9.3 mg/dL (8.6-10.8); Carbon Dioxide 23 mEq/L (19-29); Chloride 109 mEq/L (98-109); Chol/HDL Ratio 3.8 (0-4.9); Cholesterol 230 mg/dL (< 200); Glucose 136 mg/dL (70-99); HDL Cholesterol 61 mg/dL (40-59); LDL Cholesterol,Calculated 157 mg/dL (0-99); Magnesium 1.9 mg/dL (1.6-2.6); Osmolality,Calculated 289 (280-300); Potassium 4.4 mEq/L (3.5-4.5); Sodium 139 mEq/L (136-145); Triglycerides 59 mg/dL (< 150); eGFR For African Americans > 60 (> 60); eGFR For Non-African Americans > 60 (> 60)
[2017-05-13] MEDS ORDERED: Regadenoson 0.4 MG/5 ML SYRINGE IVP ONE (05:47)
[2017-05-13] MEDS: *HR* Heparin 5,000 UNIT/ML VIAL SQ SCH ×3 (05:54→22:30)
--- NOTE | 2017-05-13 06:28 | Electrocardiograph Report ---
[place] [employer] Test Date: 2017-05-12 Pat Name: Ashley Ramos Department: 102 Room: 3B33 Gender: F Manager Emergency Department: : 1960 Requested By: Justin Quiroga Order Number: [id number] Reading MD: Cam Rivas MD Measurements Intervals [place] Rate: 77 P: 44 AR: 163 QRS: 4 QRSD: 122 T: 21 QT: 378 QTc: 409 Interpretive Statements SINUS RHYTHM WITH OCCASIONAL SUPRAVENTRICULAR PREMATURE COMPLEXES MODERATE INTRAVENTRICULAR CONDUCTION DELAY Electronically Signed On 05-13-2017 6:26:19 EDT by Cam Rivas MD
--- NOTE | 2017-05-13 06:29 | Electrocardiograph Report ---
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
[2017-05-13] MEDS: Budesonide/Formoterol 160/4.5 MDI IH SCH ×2 (07:29→19:43)
[2017-05-13] MEDS: ALPRAZolam 0.5 MG TABLET PO SCH ×4 (08:30→20:13)
[2017-05-13] MEDS ORDERED: predniSONE 20 MG TABLET PO SCH (09:00)
[2017-05-13] MEDS: FLUoxetine 20 MG CAPSULE PO SCH (11:24)
[2017-05-13] MEDS: Gabapentin 300 MG CAPSULE PO SCH ×2 (11:24→20:12)
--- NOTE | 2017-05-13 16:17 | Internal Med Progress Note ---
Date of Encounter: 05/13/17 Time of Encounter: 16:15 - Assessment and plan (1) Chest pain Current Visit: Yes Status: Acute Assessment and plan: So far negative troponin No acute EKG changes She is at high risk for ACS ..ordered Stress test - still pending cont ASA, Statin and ARB's Qualifiers: Chest pain type: other chest pain Qualified Code(s): R07.89 - Other chest pain; R07.8 - Other chest pain (2) Acute exacerbation of chronic obstructive airways disease Current Visit: Yes Status: Acute Assessment and plan: She does have moderate wheezing Pt is in mild COPD exacerbation inc Prednisone to 40mg BID cont Duoneb and O2 cont close monitoring (3) Hypertension Current Visit: Yes Status: Chronic Assessment and plan: stable with current medication Cozaar and Lasix Qualifiers: Hypertension type: essential hypertension Qualified Code(s): I10 - Essential (primary) hypertension (4) Anxiety and depression Current Visit: Yes Status: Chronic Assessment and plan: Resumed home meds Xanax, Prozac (5) HLD (hyperlipidemia) Current Visit: Yes Status: Acute Assessment and plan: Reviewed her FLP - Significantly elevated LDL Started her on Lipitor Qualifiers: Qualified Code(s): E78.5 - Hyperlipidemia, unspecified (6) Obesity Current Visit: Yes Status: Acute Assessment and plan: She is concerned about weight gaining even with lifestyle and diet modifications will check her TSH in AM Qualifiers: Body mass index: BMI 40.0-44.9 Qualified Code(s): E66.9 - Obesity, unspecified; Z68.41 - Body mass index (BMI) 40.0-44.9, adult (7) DVT prophylaxis Current Visit: No Status: Acute Assessment and plan: on Heparin SQ - Subjective Interval history: Ms. Ramos is a 56 year old female with a PMH of GERD, COPD, asthma, anxiety and depression, hypertension who presented to the emergency department this morning complaining of chest pain. She states that last night she laid down and it felt like someone was sitting on her chest, the pain felt like "bee stings" in her chest and back. She had trouble sleeping all night due to the pain. Pt was admitted here for chest pain. She denied any more CP. However she does c/ o mild MUNGUIA / SOB. No N / V. Tolerating PO intake well - Constitutional Vitals: Temp Pulse Resp BP Pulse Ox 97.7 F 77 16 166/83 93 05/13/17 15:11 05/13/17 15:11 05/13/17 15:11 05/13/17 15:11 05/13/17 15:11 General appearance: Present: cooperative, A&O X 3, pleasant, obese, answers questions appropriately - Head Head exam: Present: atraumatic, normal inspection - Respiratory Respiratory exam: Present: decreased breath sounds, wheezes. Absent: rales, respiratory distress, rhonchi - Cardiovascular Cardiovascular exam: Present: RRR, +S1, +S2. Absent: diastolic murmur, gallop, rubs, systolic murmur - GI/Abdominal GI/Abdominal exam: Present: normal bowel sounds, soft, no peritoneal signs. Absent: distended, tenderness - Extremities Exam Extremities exam: Absent: calf tenderness, pedal edema, tenderness - Neurological Exam Neurological exam: Present: alert, oriented X3 - Psychiatric Psychiatric exam: Present: normal affect, normal mood Internal Medicine: Result - Labs CBC & Chem 7: 05/13/17 04:31 05/13/17 04:31 Labs: Short CBC 05/13/17 Range/Units 04:31 WBC 8.6 (4.3-11.1) K/mcL Hgb 12.1 (11.5-15.4) g/dL Hct 38.0 (35.3-44.9) % Plt Count 211 (140-400) K/mcL BMP 05/13/17 04:31 Sodium 139 Potassium 4.4 Chloride 109 Carbon Dioxide 23 BUN 10 Creatinine 0.87 Glucose 136 H Calcium 9.3 - ABG Interpretation ABG results: PT/INR, D-dimer PT 10.9 Seconds (9.4-12.1) 05/12/17 09:43 D-Dimer 495 ng/mLFEU (0-500) 05/12/17 09:43 Consult Discharge Plan - Plan Referrals: Jarod Hilton MD [Primary Care Provider] -
[2017-05-13] MEDS: predniSONE 20 MG TABLET PO SCH (20:12)
[2017-05-14] MEDS: Ipratropium/Albuterol Neb 3 ML IH SCH ×3 (03:40→11:31)
[2017-05-14] MEDS: *HR* Heparin 5,000 UNIT/ML VIAL SQ SCH (05:48)
[2017-05-14] MEDS: FLUoxetine 20 MG CAPSULE PO SCH (09:22)
[2017-05-14] MEDS: Gabapentin 300 MG CAPSULE PO SCH (09:22)
[2017-05-14] MEDS: ALPRAZolam 0.5 MG TABLET PO SCH ×2 (09:22→12:16)
[2017-05-14] MEDS: predniSONE 20 MG TABLET PO SCH (09:23)
[2017-05-14] MEDS: *HR* Morphine 2 MG/ML SYRINGE IVP PRN (11:23)
[2017-05-14] MEDS: Budesonide/Formoterol 160/4.5 MDI IH SCH (11:33)
[2017-05-14 11:49] VITALS: BP 143/69
[2017-05-14] MEDS: Nitroglycerin 0.4 MG TAB.SUBL SL PRN ×3 (11:51→12:16)
--- NOTE | 2017-05-14 14:19 | Discharge Summary ---
Date of Encounter: 05/14/17 Time of Encounter: 14:13 - Discharge Diagnosis (1) Chest pain Priority: Primary Status: Acute Qualifiers: Chest pain type: other chest pain Qualified Code(s): R07.89 - Other chest pain; R07.8 - Other chest pain (2) Acute exacerbation of chronic obstructive airways disease Priority: Primary Status: Acute (3) Hypertension Priority: Secondary Status: Chronic Qualifiers: Hypertension type: essential hypertension Qualified Code(s): I10 - Essential (primary) hypertension (4) Anxiety and depression Priority: Secondary Status: Chronic (5) HLD (hyperlipidemia) Priority: Secondary Status: Acute Qualifiers: Qualified Code(s): E78.5 - Hyperlipidemia, unspecified (6) Obesity Priority: Secondary Status: Acute Qualifiers: Body mass index: BMI 40.0-44.9 Qualified Code(s): E66.9 - Obesity, unspecified; Z68.41 - Body mass index (BMI) 40.0-44.9, adult - Discharge Medications Prescriptions: Atorvastatin [Lipitor] 40 mg PO HS #30 tab Budesonide/Formoterol 160/4.5 [Symbicort 160/4.5] 2 puff IH BIDR #1 predniSONE [PredniSONE] 40 mg PO DAILY 3 Days Home Medications: Albuterol Sulfate [Ventolin Hfa] 2 puff IH Q4H PRN 08/16/15 [History] FLUoxetine HCl [Prozac] 20 mg PO QAM 05/07/16 [History] ALPRAZolam [Xanax 0.5 MG Tablet] 0.5 mg PO QID 11/21/16 [History] Furosemide [Lasix] 20 mg PO DAILY PRN 11/21/16 [History] Ipratropium/Albuterol Neb [Duoneb] 3 ml IH Q6H PRN 11/21/16 [History] Dexlansoprazole [Dexilant] 30 mg PO DAILY 12/09/16 [History] Gabapentin [Neurontin] 300 mg PO BID 12/10/16 [History] Promethazine [Phenergan] 25 mg PO Q6HR PRN #16 tablet 04/07/17 [Rx] Losartan Potassium [Cozaar] 100 mg PO DAILY 05/12/17 [History] Nitroglycerin [Nitrostat] 0.4 mg SL Q5M PRN 05/12/17 [History] Atorvastatin [Lipitor] 40 mg PO HS #30 tab 05/14/17 [Rx] Budesonide/Formoterol 160/4.5 [Symbicort 160/4.5] 2 puff IH BIDR #1 05/14/17 [ Rx] HYDROcodone/Acet 5/325 mg [[place]ster 5-325 mg] 1 tab PO Q8H PRN #10 tab 05/14/17 [Rx ] predniSONE [PredniSONE] 40 mg PO DAILY 3 Days 05/14/17 [Rx] Allergies/Adverse Reactions: 3 Allergy/AdvReac Type Severity Reaction Status Date / Time aspirin Allergy Mild Wheezing Verified 05/12/17 09:10 milk Allergy See Verified 05/12/17 09:10 Comments Pneumococcal Vaccine AdvReac Anxiety Verified 05/12/17 09:10 quetiapine [From Seroquel] AdvReac Agitated Verified 05/12/17 09:10 Procedures/tests Complete & Pending: Procedures Performed prior 72 hours Category Date Time Status NM yamila perf SPECT multi [NM] Routine Exams 05/12/17 12:43 Taken EV echocardiogram Routine Y 05/12/17 12:51 Completed SP pharm nuclear stress Routine Y 05/13/17 07:00 Completed Date of admission: 05/12/17 11:40 Primary care physician: Jarod Hilton MD - Patient Status Disposition: Home, Self-Care Condition: Good Overall status at discharge: patient is back to baseline - Discharge Instructions Follow Up With: Jarod Hilton MD [Primary Care Provider] - Additional Instructions: Need to f/u with PCP in one week Need to loose weight Need to change diet to low salt and low cholesterol - Diet and Activity Activity: increase activity as tolerated Diet: low fat, low cholesterol, low salt diet Hospital course: Ms. Ramos is a 56 year old female with a PMH of GERD, COPD, asthma, anxiety and depression, hypertension who presented to the emergency department this morning complaining of chest pain. She states that last night she laid down and it felt like someone was sitting on her chest, the pain felt like "bee stings" in her chest and back. She had trouble sleeping all night due to the pain. Pt was admitted here for chest pain. She was placed on monitoring manager and checked her serial troponin which were negative. Since she is high risk for ACS we did nuclear cardiac stress test which came back as negative for any ischemia. She does not have any acute EKG changes too. She does have reproducible chest pain , it seems to be she does have costochondritis, recommend to use Tylenol / Naproxen prn. Also she does have mild COPD exacerbation with wheezing, so started on short course of PO steroids. Pt is resting comfortably on RA, no active CP now, so will d/c her home in stable condition. Recommend to loose weight, and diet modifications. Her LDL was at 157 , so started her on Lipitor 40mg HS here. - Time Spent with Patient Total time spent providing and/or coordinating discharge services: - Constitutional Vitals: Temp Pulse Resp BP Pulse Ox 98.3 F 77 16 143/69 95 05/14/17 11:48 05/14/17 11:48 05/14/17 11:48 05/14/17 11:48 05/14/17 11:48 General appearance: Present: cooperative, A&O X 3, pleasant, obese, answers questions appropriately - Head Head exam: Present: atraumatic, normal inspection - Respiratory Respiratory exam: Present: decreased breath sounds, wheezes. Absent: rales, respiratory distress, rhonchi - Cardiovascular Cardiovascular exam: Present: RRR, +S1, +S2. Absent: systolic murmur Additional comments: reproducible chest pain - GI/Abdominal GI/Abdominal exam: Present: normal bowel sounds, soft. Absent: rebound, rigid, tenderness - Extremities Exam Extremities exam: Absent: calf tenderness, pedal edema, tenderness - Psychiatric Psychiatric exam: Present: normal affect, normal mood
--- NOTE | 2017-05-16 08:27 | Nuclear Medicine Stress Report ---
Regadenoson Nuclear 2 day Name: Ashley Ramos Date of Study: 05/13/2017 Date: 1960 Ht: 60.0 in Medical Record#: [id number] Age: 56 Wt: 206.0 lb Gender: Female Order #: [id number] Location: [facility] Room: [facility] Supervising Provider: Franklin Washington CNP Reading Physician: Seven Ortiz DO, FACC, FASNC Ordering Physician: Amie Montano CNP Primary Care Physician: Jarod Hilton MD Stress Technologist: Khari Newberry CRT Testing Director: Rhonda Massey Indications: Chest Pain Impression: Pharmacologic stress ECG is negative for ischemia at level of heart rate achieved. Gated EF > 70%. Perfusion imaging was negative for ischemia or infarct. History: Hypertension Stress Test Summary: Stress Test Type: Pharmacologic Regadenoson 0.4mg/5ml given IV Baseline Information: Initial Heart Rate: 76 Blood Pressure: 130/82 Stress Information: Test Terminated Due to (primary): As per protocol Maximum Blood Pressure: 132/74 Maximum Heart Rate: 98 Percent Maximum Heart Rate Achieved: 59 Double Product: [id number] METS Reached: 1 Symptoms: No chest symptoms Nuclear Summary: SPECT myocardial perfusion imaging using Tc99m Sestamibi given intravenously was performed at rest and following cardiac stress testing. The resting images were obtained following initial dose of 35.8 mCi. Following stress an additional dose of 35.6 mCi was given at peak exercise or 30 seconds post regadenoson infusion. Medication Given: Time Medication Dose Units Route Findings: Stress Note * Resting ECG demonstrated normal sinus rhythm. * No baseline arrhythmias were noted. * Pharmacologic stress ECG is negative for ischemia at level of heart rate achieved. * No arrhythmias were noted during stress. * Patient had no chest pain during stress. * Normal hemodynamic responses to pharmacologic stress. Study Quality * Study quality is good. Gated EF > 70% * Gated EF > 70%. Left Ventricle * The left ventricle is not dilated. LVEDV = 72 mL. NORMALS * Normal wall motion. * Normal Segmental Perfusion in rest. * Normal segmental perfusion in stress. TID * No evidence of transient ischemic dilatation. TID ratio = 1.19. Lung Uptake * There is no evidence of increase lung uptake. Updated by Seven Ortiz DO, FACC, FASPratima, FASNAY on 05/14/2017 9:15:26 AM electronically signed on 05/14/2017 9:16:12 AM with status of Final
--- NOTE | 2017-05-16 08:31 | Venous Imaging Report ---
LE Venous Duplex Patient Name:Ashley Ramos Order Number:[id number] Procedure Date:05/12/2017 Date:2Age:56 yrs Gender:Female Location:[facility] ED Room #: ER 2 Rn Registry:Rhonda Medina RDCS, KELLYT Referring MD:Ashley Mcgarry DO hyperbaric welder diver:Jarod Hilton MD Reading MD:Van Meyers MD Primary Indications:Swelling Secondary Indications: Risk Factors Yes/No Hx of DVT No Hx of Chemotherapy No Anticoagulants No Trauma to Veins No Recent Surgery No Impressions: Left lower extremity: normal superficial and deep exam. Recommendations: After imaging the patient returned to their room. Test completed on 05/12/2017 at 10:35:11 am. Critical findings reported to Ashley Mcgarry by phone at 10:42:23 am on 05/12/2017 by Rhonda Medina RDCS, KELLYT. Findings Prior Study: No prior study available for comparison. Lower Extremity Venous Duplex Side Vein Compress Spontaneous Flow Augment Diameter (cm) Depth (cm) Left Distal Iliac Normal Yes Phasic Yes Left Common Femoral Normal Yes Phasic Yes Left Superficial Femoral Normal Yes Phasic Yes Left Popliteal Normal Yes Phasic Yes Left Posterior Tibial Normal Yes Phasic Yes Left Peroneal Normal Yes Phasic Yes Left Great Saphenous Normal Yes Phasic Yes Left Lesser Saphenous Normal Yes Phasic Yes Right Common Femoral Normal Yes Phasic Yes Updated by Van Meyers MD on 05/14/2017 4:02:50 PM electronically signed on 05/14/2017 4:03:15 PM with status of Final
--- NOTE | 2017-05-16 17:33 | Electrocardiograph Report ---
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
== END 2017-05-14 14:45 | disposition home or self-care (01) ==
LOC: 3BNU 09:07 → EMEROO 09:07 → SUATTDRO 11:40 → 3BNU 11:58
PROVIDERS: ADMIT Internal Medicine; ATTEND Family Medicine

== ENCOUNTER 2018-06-05 11:44 | Observation (INO) ==
[2018-06-05 13:23] LABS: Basophils # 0.1 K/mcL (0.0-0.2); Basophils % 0.8 %; Eosinophils # 0.6 K/mcL (0.0-0.6); Eosinophils % 6.6 %; Hematocrit 40.6 % (35.3-44.9); Hemoglobin 13.3 g/dL (11.5-15.4); Immature Granulocytes % 0.5 % (0-4); Lymphocytes # 2.9 K/mcL (0.6-4.6); Lymphocytes % 30.5 %; Mean Corpuscular HGB Conc 32.8 g/dL (31.6-35.5); Mean Corpuscular Hemoglobin 26.6 pg (28.0-33.3); Mean Corpuscular Volume 81.2 fL (83.0-100.0); Mean Platelet Volume 10.2 fL (9.4-12.4); Monocytes # 0.5 K/mcL (0.0-1.3); Monocytes % 5.1 %; Neutrophils # 5.4 K/mcL (1.6-8.9); Platelet Count 245 K/mcL (140-400); Red Cell Distribution Width 13.5 % (11.5-14.5); Segmented Neutrophils % 56.5 %
--- NOTE | 2018-06-05 13:29 | Emergency Department Note ---
Disposition Referrals: Jarod Hilton MD [Primary Care Provider] - General Adult HPI - General Chief complaint: ED Shortness of Breath/Dyspnea Stated complaint: YSABEL [id number] Time Seen by Provider: 06/05/18 12:49 Source: patient Mode of arrival: private vehicle Limitations: no limitations Nursing Notes Reviewed: Yes Vital Signs Reviewed: Yes - History of Present Illness HPI Narrative: The patient is a 57 year old female with history of COPD and asthma who presented with shortness of breath. She stated the shortness of breath began 4 weeks ago. She also has a dry cough with intermittent episodes of thick yellow sputum production for 2 weeks, Pain Scale: 6 - Related Data Home Medications Medication Instructions Recorded Confirmed FLUoxetine HCl [Prozac] 20 mg PO QAM 05/07/16 05/23/18 ALPRAZolam [Xanax 0.5 MG Tablet] 0.5 mg PO QID 11/21/16 05/23/18 Furosemide [Lasix] 20 mg PO DAILY PRN 11/21/16 05/23/18 Ipratropium/Albuterol Neb [Duoneb] 3 ml IH Q6H PRN 11/21/16 05/23/18 Gabapentin [Neurontin] 300 mg PO QID 12/10/16 05/23/18 Losartan Potassium [Cozaar] 100 mg PO DAILY 05/12/17 05/23/18 Nitroglycerin [Nitrostat] 0.4 mg SL Q5M PRN 05/12/17 05/23/18 Tizanidine HCl [Zanaflex] 4 mg PO TID 05/16/18 05/23/18 Previous Rx's Medication Instructions Recorded Atorvastatin [Lipitor] 40 mg PO HS #30 tab 05/14/17 Budesonide/Formoterol 160/4.5 2 puff IH BIDR #1 05/14/17 [Symbicort 160/4.5] Albuterol Sulfate [Albuterol 2 puff IH Q4HR PRN #1 hfa.aer.ad 08/16/17 Inhaler] Azithromycin [Azithromycin 6-Tab 250 mg PO PER PKG DI #6 tab 05/16/18 Pack] Benzonatate [Tessalon] 200 mg PO TID PRN #45 capsule 05/16/18 Cetirizine HCl [Zyrtec] 10 mg PO DAILY #90 tablet 05/16/18 Fluticasone Propionate Nasal 1 - 2 spray NS DAILY #1 bottle 05/16/18 [Flonase] PredniSONE [Deltasone] 40 mg PO DAILY 5 Days #10 tablet 05/16/18 Ciprofloxacin HCl [Cipro] 500 mg PO Q12H #20 tablet 05/23/18 GuaiFENesin/Dextromethorphan 10 ml PO Q6HR #180 syrup 05/23/18 [Robitussin/DM] PredniSONE [Deltasone] 40 mg PO DAILY #10 tablet 05/23/18 Tramadol HCl [Ultram] 50 mg PO QID 3 Days #8 tab 05/23/18 Allergies Allergy/AdvReac Type Severity Reaction Status Date / Time aspirin Allergy Mild Wheezing Verified 03/23/18 11:09 milk Allergy See Verified 03/23/18 11:09 Comments Pneumococcal Vaccine AdvReac Anxiety Verified 03/23/18 11:09 quetiapine [From Seroquel] AdvReac Agitated Verified 03/23/18 11:09 Past Medical History - Past Medical History Medical history: Reports: asthma, COPD, hypertension Surgical history: Reports: cholecystectomy, hysterectomy, orthopedic, other, sinus surgery, CHARBEL/BSO, other Psychiatric history: Reports: anxiety, depression TRENCHER DRIVER history: Reports: no TRENCHER DRIVER history - Social History Smoking Status: Never smoker Smokeless Tobacco Status: No Alcohol use: Reports: none Drug use: Reports: none Course Vital Signs Temperature 98.1 F 06/05/18 11:48 Pulse Rate 84 06/05/18 11:48 Respiratory Rate 18 06/05/18 11:48 Blood Pressure 184/78 06/05/18 11:48 O2 Sat by Pulse Oximetry 94 06/05/18 11:48 Temperature 98.1 F 06/05/18 11:48 Pulse Rate 84 06/05/18 11:48 Respiratory Rate 18 06/05/18 11:48 Blood Pressure 184/78 06/05/18 11:48 O2 Sat by Pulse Oximetry 94 06/05/18 11:48 Oxygen Delivery Oxygen Delivery Room Air Medical Decision Making - Lab Data Result diagrams: 06/05/18 13:10 Lab Results 06/05/18 Range/Units 13:10 WBC 9.5 (4.3-11.1) K/mcL RBC 5.00 H (3.82-4.97) M/mcL Hgb 13.3 (11.5-15.4) g/dL Hct 40.6 (35.3-44.9) % MCV 81.2 L (83.0-100.0) fL MCH 26.6 L (28.0-33.3) pg MCHC 32.8 (31.6-35.5) g/dL RDW 13.5 (11.5-14.5) % Plt Count 245 (140-400) K/mcL MPV 10.2 (9.4-12.4) fL Immature Gran % 0.5 (0-4) % Seg Neutrophils % 56.5 % Lymphocytes % 30.5 % Monocytes % 5.1 % Eosinophils % 6.6 % Basophils % 0.8 % Neutrophils # 5.4 (1.6-8.9) K/mcL Lymphocytes # 2.9 (0.6-4.6) K/mcL Monocytes # 0.5 (0.0-1.3) K/mcL Eosinophils # 0.6 (0.0-0.6) K/mcL Basophils # 0.1 (0.0-0.2) K/mcL
[2018-06-05] MEDS ORDERED: Ipratropium/Albuterol Neb 3 ML IH ONE ×2 (13:34→13:43)
[2018-06-05 13:48] LABS: BUN/Creatinine Ratio 10 (6-26); Blood Urea Nitrogen 8 mg/dL (6-20); Calcium 9.3 mg/dL (8.6-10.3); Carbon Dioxide 29 mEq/L (23-29); Chloride 102 mEq/L (98-107); Glucose 100 mg/dL (70-105); Osmolality,Calculated 282 (280-300); Sodium 137 mEq/L (136-145); eGFR For Non-African Americans > 60 (> 60)
[2018-06-05 13:49] LABS: Troponin I < 0.03 ng/mL (< 0.04)
[2018-06-05] MEDS ORDERED: methylPREDNISolone 125 MG/2 ML VIAL IVP ONE (13:55)
[2018-06-05] MEDS ORDERED: 0.9 % Sodium Chloride 1,000 ML IVC ONE (13:55)
--- NOTE | 2018-06-05 14:07 | Emergency Department Note ---
Disposition Clinical Impression: COPD exacerbation Disposition: Still a Patient Condition: Fair SOB HPI - General Chief Complaint: ED Shortness of Breath/Dyspnea Stated Complaint: YSABEL [id number] Time Seen by Provider: 06/05/18 12:49 Source: patient Limitations: no limitations Nursing Notes Reviewed: Yes Vital Signs Reviewed: Yes - History of Present Illness 57 YO F here for SOB with history of COPD, asthma, and history of mutiple COPD excerbations that required hosptilzation. She reports that she has been having SOB for the past 4 weeks. Patient has productive cough with yellow sputum that doesn't occur at baseline. States she has been feeling feverish, chills, and night sweats. She states her 3 YO grandson was sick 2-3 weeks ago. Denies CP, CP with exertion, N/V, acute urinary changes, acute changes in stooling. Patient was worked up for CP in past with coronary cath that did not find anything. However, was given nitroglycerin for CP. Pt Subjective Complaint: shortness of breath - Related Data Home Medications Medication Instructions Recorded Confirmed FLUoxetine HCl [Prozac] 20 mg PO QAM 05/07/16 06/05/18 ALPRAZolam [Xanax 0.5 MG Tablet] 0.5 mg PO QID 11/21/16 06/05/18 Furosemide [Lasix] 20 mg PO DAILY PRN 11/21/16 06/05/18 Ipratropium/Albuterol Neb [Duoneb] 3 ml IH Q6H PRN 11/21/16 06/05/18 Gabapentin [Neurontin] 300 mg PO QID 12/10/16 06/05/18 Losartan Potassium [Cozaar] 100 mg PO DAILY 05/12/17 06/05/18 Nitroglycerin [Nitrostat] 0.4 mg SL Q5M PRN 05/12/17 06/05/18 Tizanidine HCl [Zanaflex] 4 mg PO TID 05/16/18 06/05/18 Previous Rx's Medication Instructions Recorded Atorvastatin [Lipitor] 40 mg PO HS #30 tab 05/14/17 Budesonide/Formoterol 160/4.5 2 puff IH BIDR #1 05/14/17 [Symbicort 160/4.5] Albuterol Sulfate [Albuterol 2 puff IH Q4HR PRN #1 hfa.aer.ad 08/16/17 Inhaler] Cetirizine HCl [Zyrtec] 10 mg PO DAILY #90 tablet 05/16/18 Fluticasone Propionate Nasal 1 - 2 spray NS DAILY #1 bottle 05/16/18 [Flonase] Allergies Allergy/AdvReac Type Severity Reaction Status Date / Time aspirin Allergy Mild Wheezing Verified 03/23/18 11:09 milk Allergy See Verified 03/23/18 11:09 Comments Pneumococcal Vaccine AdvReac Anxiety Verified 03/23/18 11:09 quetiapine [From Seroquel] AdvReac Agitated Verified 03/23/18 11:09 Constitutional: Reports: fever, chills, night sweats Cardiovascular: Reports: dyspnea on exertion. Denies: chest pain, palpitations Respiratory: Reports: cough, dyspnea, wheezes, sputum production (yellow, reports not having at baseline). Denies: hemoptysis Past Medical History - Past Medical History Medical history: Reports: asthma, COPD, hypertension Surgical history: Reports: cholecystectomy, hysterectomy, orthopedic, other, sinus surgery, CHARBEL/BSO, other Psychiatric history: Reports: anxiety, depression AIR SAMPLER history: Reports: no AIR SAMPLER history - Social History Smoking Status: Never smoker Smokeless Tobacco Status: No Alcohol use: Reports: none Drug use: Reports: none Physical Exam - General Limitations: no limitations General appearance: alert, in no apparent distress Course Course Narrative: 57 YO F here for SOB with history of COPD and recent respiratory tract infection. Received cardiac cath which was negative for pathology, but given nitroglycerin. - Given breathing treatment and reports feeling slightly better - Pateint reporting blitleral back pain most likely from coughing - took ibuprofen at 3AM at home - will give tyenol - Reevaluation(s) Reevaluation #1: D-Dimer is elevated. - Patient had very mild LE pain, but not concerned for DVT per Well's criteria. Attending agrees. - Ordered CTA to rule out PE. Reevaluation #2: CTA chest negative, spoke to patient and hospitalist and she will be admitted. Vital Signs Temperature 98.1 F 06/05/18 11:48 Pulse Rate 84 06/05/18 11:48 Respiratory Rate 18 06/05/18 11:48 Blood Pressure 184/78 06/05/18 11:48 O2 Sat by Pulse Oximetry 94 09/17/18 11:48 Temperature 98.1 F 06/05/18 13:40 Pulse Rate 84 06/05/18 13:40 Respiratory Rate 20 06/05/18 13:48 Blood Pressure 184/78 06/05/18 13:40 O2 Sat by Pulse Oximetry 100 06/05/18 13:48 Oxygen Delivery Oxygen Delivery Room Air Shortness of Breath/Dyspnea - MDM Narrative Medical decision making narrative: Chest X-Ray 06/05/18 11:58 IMPRESSION: No acute findings. No change. D/ / 06/05/2018 12:27:45 Basil Liu MD / sol Interpreting Provider: Basil Liu MD 1500 no signs of pneumonia on chest x-ray. D-dimer is elevated, we will go ahead and get a CTA of the chest. 1530 hrs: Chest X-Ray 06/05/18 11:58 IMPRESSION: No acute findings. No change. D/ / 06/05/2018 12:27:45 Basil Liu MD / sol Interpreting Provider: Basil Liu MD Chest CTA 06/05/18 14:08 IMPRESSION: No evidence of pulmonary embolism or acute pulmonary abnormality. D/ / Yayo Vanegas MD / Yayo Vanegas MD Interpreting Provider: Yayo Vanegas MD 1600 hrs.: Patient's CT is negative. We spoke with hospitalist for admission. Because she has failed outpatient treatment and is dyspneic with an ablation here in a bring her into exacerbation of COPD. She is in agreement with this plan. - Lab Data Result diagrams: 06/05/18 13:10 06/05/18 13:10 Lab Results 06/05/18 06/05/18 06/05/18 Range/Units 13:10 13:10 13:10 WBC 9.5 (4.3-11.1) K/mcL RBC 5.00 H (3.82-4.97) M/mcL Hgb 13.3 (11.5-15.4) g/dL Hct 40.6 (35.3-44.9) % MCV 81.2 L (83.0-100.0) fL MCH 26.6 L (28.0-33.3) pg MCHC 32.8 (31.6-35.5) g/dL RDW 13.5 (11.5-14.5) % Plt Count 245 (140-400) K/mcL MPV 10.2 (9.4-12.4) fL Immature Gran % 0.5 (0-4) % Seg Neutrophils % 56.5 % Lymphocytes % 30.5 % Monocytes % 5.1 % Eosinophils % 6.6 % Basophils % 0.8 % Neutrophils # 5.4 (1.6-8.9) K/mcL Lymphocytes # 2.9 (0.6-4.6) K/mcL Monocytes # 0.5 (0.0-1.3) K/mcL Eosinophils # 0.6 (0.0-0.6) K/mcL Basophils # 0.1 (0.0-0.2) K/mcL D-Dimer (0-500) ng/mLFEU Sodium 137 (136-145) mEq/L Potassium 4.0 (3.5-5.1) mEq/L Chloride 102 (98-107) mEq/L Carbon Dioxide 29 (23-29) mEq/L BUN 8 (6-20) mg/dL Creatinine 0.82 (0.60-1.20) mg/dL Est GFR ( Amer) > 60 (> 60) Est GFR (Non-Af Amer) > 60 (> 60) BUN/Creatinine Ratio 10 (6-26) Glucose 100 (70-105) mg/dL Calculated Osmolality 282 (280-300) Lactic Acid 0.7 (0.5-2.2) mmol/L Calcium 9.3 (8.6-10.3) mg/dL Troponin I < 0.03 (< 0.04) ng/mL B-Natriuretic Peptide (Less than 100) pg/mL 06/05/18 06/05/18 Range/Units 13:10 13:10 WBC (4.3-11.1) K/mcL RBC (3.82-4.97) M/mcL Hgb (11.5-15.4) g/dL Hct (35.3-44.9) % MCV (83.0-100.0) fL MCH (28.0-33.3) pg MCHC (31.6-35.5) g/dL RDW (11.5-14.5) % Plt Count (140-400) K/mcL MPV (9.4-12.4) fL Immature Gran % (0-4) % Seg Neutrophils % % Lymphocytes % % Monocytes % % Eosinophils % % Basophils % % Neutrophils # (1.6-8.9) K/mcL Lymphocytes # (0.6-4.6) K/mcL Monocytes # (0.0-1.3) K/mcL Eosinophils # (0.0-0.6) K/mcL Basophils # (0.0-0.2) K/mcL D-Dimer 556 H (0-500) ng/mLFEU Sodium (136-145) mEq/L Potassium (3.5-5.1) mEq/L Chloride (98-107) mEq/L Carbon Dioxide (23-29) mEq/L BUN (6-20) mg/dL Creatinine (0.60-1.20) mg/dL Est GFR ( Amer) (> 60) Est GFR (Non-Af Amer) (> 60) BUN/Creatinine Ratio (6-26) Glucose (70-105) mg/dL Calculated Osmolality (280-300) Lactic Acid (0.5-2.2) mmol/L Calcium (8.6-10.3) mg/dL Troponin I (< 0.04) ng/mL B-Natriuretic Peptide 11 (Less than 100) pg/mL Critical Care Time Critical Care Time: Yes Total Critical Care Time: 45 Attestation: Excluding any separately billable procedures. Attestation Statement - Attestation Attestation: This documentation is done with the assistance of Dragon dictation. Despite efforts made to ensure accuracy, there may be inaccuracies in animal tech or spelling and typographical errors. I examined this patient and my medical decision-making was reviewed with the Resident Physician. I agree with the documented findings, disposition and treatment plan as described except to the extent set forth below. Patient seen and evaluated by Dr. paiz and myself, I agree with his evaluation management plan , I supervised the care of the patient's stay. Patient a history of COPD and asthma. 2 been on multiple courses of steroids and antibiotics. She says she just does not feel like she is getting better. Denies any chest pain she says she has been coughing some low back pain from this. She denies any swelling in her legs. She said she did get some swelling in her legs when she walks with scar now. She denies any history of blood clots or DVTs. Were going to give her breathing treatments here as she has wheezing bilaterally. And give her dose IV steroids. And reassess. She is in agreement with this plan.
[2018-06-05] MEDS ORDERED: Isovue-370 500 ML INFUS..BTL IV ONE (14:08)
[2018-06-05] MEDS ORDERED: Naloxone 0.4 MG/ML INJ IVP PRN (16:16)
[2018-06-05] MEDS ORDERED: Furosemide 20 MG TABLET PO PRN (16:19)
[2018-06-05] MEDS ORDERED: GI Cocktail 40 ML EACH PO ONE (16:23)
--- NOTE | 2018-06-05 16:33 | Internal Med History&Physical ---
Date of Encounter: 06/05/18 Time of Encounter: 16:27 Internal Medicine - H&P: HPI Chief complaint: Shortness of Breath Admitted From: Home Plans for Post Hospital Care: Home History of present illness: Ms. Ramos is a 57 year old female with past medical history of COPD, anxiety, hypertension who presents to the emergency department she complained of 4 week history of shortness of breath. The patient states that she has been on steroids sporadically over the last several weeks with doses between 10 mg and 40 mg daily. She states that she is also had a course of ciprofloxacin and azithromycin without improvement. She reports occasional sputum production and continued mostly dry cough. She has been using her home nebulizers and inhalers without improvement as well. Patient was wheezing on arrival to the emergency department and given 125 mg of Solu-Medrol and had an elevated d- dimer so CTA was performed which did not reveal any pulmonary embolism or significant abnormality. Patient does admit to progressive dyspnea on exertion and inability to lay flat secondary to shortness of breath. Patient did have a recent echocardiogram that did reveal moderate left ventricular diastolic dysfunction. Patient does admit to recent sick contacts however this was after she started having this progressive shortness of breath. Patient denies any fevers at home but admits to chills. Denies any chest pain, abdominal pain, nausea, vomiting, diarrhea, blurred vision, double vision. Does admit to neck and back pain that is chronic. Past Med Surg Social Fam HX - Past Medical History Medical history: asthma, COPD, hypertension Additional medical history: seasonal allergies Psychiatric history: anxiety, depression - Past Surgical History Surgical History: cholecystectomy, hysterectomy, orthopedic, other, sinus surgery, CHARBEL/BSO, other Additional surgical history: heart cath x 3. bronch - Social History Smoking Status: Never smoker Smokeless Tobacco Status: No Alcohol use: none Drug use: none - Family History Mother Living Status: Still Living Hx Family Cardiac Disorders: Yes (Hypertension and arrhythmia) Hx Family Endocrine Disorder: Yes (Diabetes) Brother Hx Family Cardiac Disorders: Yes (major DC at 39.) Father Adopted: No Living Status: Hx Family Cardiac Disorders: No Hx Family Respiratory Disorders: Yes (Lung Ca, States "on oxygen and nebulizer. Smoker) Hx Family Cancer: Yes Hx Family GI Disorders: No Hx Family Endocrine Disorder: No Hx Family Neuromuscular Disorders: No Hx Family Neurologic Disorders: No Hx Family HEENT Disorders: Yes (States "sinus issues") Hx Family Autoimmune Disorders: No Internal Medicine - H&P: Meds FLUoxetine HCl [Prozac] 20 mg PO QAM 05/07/16 [History] ALPRAZolam [Xanax 0.5 MG Tablet] 0.5 mg PO QID 11/21/16 [History] Furosemide [Lasix] 20 mg PO DAILY PRN 11/21/16 [History] Ipratropium/Albuterol Neb [Duoneb] 3 ml IH Q6H PRN 11/21/16 [History] Gabapentin [Neurontin] 300 mg PO QID 12/10/16 [History] Losartan Potassium [Cozaar] 100 mg PO DAILY 05/12/17 [History] Nitroglycerin [Nitrostat] 0.4 mg SL Q5M PRN 05/12/17 [History] Atorvastatin [Lipitor] 40 mg PO HS #30 tab 05/14/17 [Rx] Budesonide/Formoterol 160/4.5 [Symbicort 160/4.5] 2 puff IH BIDR #1 05/14/17 [Rx ] Albuterol Sulfate [Albuterol Inhaler] 2 puff IH Q4HR PRN #1 hfa.aer.ad 08/16/17 [Rx] Cetirizine HCl [Zyrtec] 10 mg PO DAILY #90 tablet 05/16/18 [Rx] Fluticasone Propionate Nasal [Flonase] 1 - 2 spray NS DAILY #1 bottle 05/16/18 [ Rx] Tizanidine HCl [Zanaflex] 4 mg PO TID 05/16/18 [History] 3 Allergy/AdvReac Type Severity Reaction Status Date / Time aspirin Allergy Mild Wheezing Verified 03/23/18 11:09 milk Allergy See Verified 03/23/18 11:09 Comments Pneumococcal Vaccine AdvReac Anxiety Verified 03/23/18 11:09 quetiapine [From Seroquel] AdvReac Agitated Verified 03/23/18 11:09 All Systems PM: A 10-system review of systems was performed and is negative for pertinent findings except as documented above in the HPI. Review of systems: 10 point review of systems is obtained and is otherwise negative other than described in history of present illness - Constitutional Vitals: Temp Pulse Resp BP Pulse Ox 98.1 F 84 20 184/78 100 06/05/18 13:40 06/05/18 13:40 06/05/18 13:48 06/05/18 13:40 06/05/18 13:48 Exam: Constitutional: No acute distress, Alert Psych: AAO x 3 HEENT: NCAT, EOMI, raspy voice Neck: supple Cardio: regular rate and rhythm, +s1s2, no murmurs/rubs/gallops, no obvious JVD Resp: decreased breath sounds throughout and inspiratory and expiratory wheezing Abd: soft, non tender/non distended, positive bowel sounds, no gaurding/reboud/ ridgitity Extremities: no clubbing/cyanosis/edema appreciated Neuro: no focal deficits appreciated Lymph: no cervical/supraclavicular adenopahty apprecitated Internal Med - H&P Results - Labs CBC & Chem 7: 06/05/18 13:10 06/05/18 13:10 - Assessment and plan (1) Dyspnea Current Visit: Yes Status: Acute Assessment and plan: Patient with four-week history of progressing dyspnea especially with exertion -Suspect multifactorial; History of copd and with exacerbation of COPD; also with left ventricular diastolic dysfunction noted on recent echocardiogram and endorses symptoms of orthopnea and dyspnea on exertion; duration of dyspnea with exposure to sick contacts could also indicate viral infection -CTA of chest negative for pulmonary embolism and no evidence of consolidation -Continue IV steroids and a Medrol 40 mg every 8 hours and wean as tolerated -Duo nebs -Continue Symbicort and Flonase -Doxycycline -We will schedule the patient's home dose of diuretic daily for a few days to see if this improves her symptoms she currently takes it when necessary and has not taken it recently -Troponin negative -Check respiratory infection panel -Currently not needing supplemental oxygen Qualifiers: Dyspnea type: dyspnea on exertion Qualified Code(s): R06.09 - Other forms of dyspnea (2) Acute exacerbation of chronic obstructive pulmonary disease (COPD) Current Visit: Yes Status: Acute Assessment and plan: -as above -IV steroids -Bronchodilators (3) HTN (hypertension) Current Visit: Yes Status: Acute Assessment and plan: -resume home meds -bp stable Qualifiers: Hypertension type: essential hypertension Qualified Code(s): I10 - Essential (primary) hypertension (4) HLD (hyperlipidemia) Current Visit: Yes Status: Acute Assessment and plan: -Continue high potency statin Qualifiers: Hyperlipidemia type: mixed hyperlipidemia Qualified Code(s): E78.2 - Mixed hyperlipidemia (5) Obesity (BMI 30.0-34.9) Current Visit: Yes Status: Acute Assessment and plan: -lifestyle changes recommended (6) GERD (gastroesophageal reflux disease) Current Visit: Yes Status: Acute Assessment and plan: -reports history of reflux and asks for reflux pill -will start prilosed and give GI cocktail Qualifiers: Esophagitis presence: esophagitis presence not specified Qualified Code(s) : K21.9 - Gastro-esophageal reflux disease without esophagitis (7) Anxiety Current Visit: No Status: Acute Assessment and plan: -continue home meds including her xanax (8) DVT prophylaxis Current Visit: Yes Status: Acute Assessment and plan: -hep sq - Time Spent With Patient Total time spent is greater than 50% in coordination of care (as documented) at patient's floor/unit and/or counseling patient: Greater than 35 minutes
[2018-06-05] MEDS: Gabapentin 300 MG CAPSULE PO SCH ×2 (17:44→22:19)
[2018-06-05] MEDS: ALPRAZolam 0.5 MG TABLET PO SCH ×2 (17:44→22:19)
[2018-06-05 20:42] LABS: Adenovirus Not Detected (Not Detect); Bordetella Pertussis Not Detected (Not Detect); Chlamydophila pneumoniae Not Detected (Not Detect); Coronavirus 229E Not Detected (Not Detect); Coronavirus HKU1 Not Detected (Not Detect); Coronavirus NL63 Not Detected (Not Detect); Coronavirus OC43 Not Detected (Not Detect); Human Metapneumovirus Not Detected (Not Detect); Human Rhinovirus/Enterovirus Not Detected (Not Detect); Influenza A Subtype 2009 H1 Not Detected (Not Detect); Influenza A Untypeable Not Detected (Not Detect); Influenza B Not Detected (Not Detect); Mycoplasma pneumoniae Not Detected (Not Detect); Parainfluenza Virus 1 Not Detected (Not Detect); Parainfluenza Virus 2 Not Detected (Not Detect); Parainfluenza Virus 3 Not Detected (Not Detect); Parainfluenza Virus 4 Not Detected (Not Detect); Respiratory Syncytial Virus Not Detected (Not Detect)
[2018-06-05] MEDS: Budesonide/Formoterol 160/4.5 1 PUFF INH IH SCH (21:58)
[2018-06-05] MEDS ORDERED: Ipratropium/Albuterol Neb 3 ML IH PRN (22:00)
[2018-06-05] MEDS: FLUoxetine 20 MG CAPSULE PO SCH (22:19)
[2018-06-05] MEDS: Doxycycline 100 MG CAPSULE PO SCH (22:19)
[2018-06-05] MEDS: tiZANidine 4 MG TABLET PO SCH (22:20)
[2018-06-05] MEDS: *HR* Heparin 5,000 UNIT/ML VIAL SQ SCH (22:20)
[2018-06-05] MEDS ORDERED: Acetaminophen 325 MG TABLET PO PRN (22:57)
[2018-06-06] MEDS: MethylPREDNISolone 40 MG/ML VIAL IVP SCH ×4 (00:09→20:22)
[2018-06-06] MEDS: *HR* HYDROcodone/Acet 5/325 mg TABLET PO PRN ×3 (00:09→22:14)
[2018-06-06 05:14] LABS: Basophils % 0.1 %; Hematocrit 40.2 % (35.3-44.9); Hemoglobin 13.1 g/dL (11.5-15.4); Immature Granulocytes % 0.9 % (0-4); Lymphocytes # 0.8 K/mcL (0.6-4.6); Lymphocytes % 8.6 %; Mean Corpuscular HGB Conc 32.6 g/dL (31.6-35.5); Mean Corpuscular Hemoglobin 26.7 pg (28.0-33.3); Mean Platelet Volume 10.7 fL (9.4-12.4); Monocytes % 0.4 %; Neutrophils # 8.7 K/mcL (1.6-8.9); Platelet Count 227 K/mcL (140-400); Red Cell Distribution Width 13.2 % (11.5-14.5)
[2018-06-06 05:33] LABS: BUN/Creatinine Ratio 12 (6-26); Blood Urea Nitrogen 9 mg/dL (6-20); Calcium 8.9 mg/dL (8.6-10.3); Carbon Dioxide 23 mEq/L (23-29); Chloride 105 mEq/L (98-107); Glucose 218 mg/dL (70-105); Magnesium 1.9 mg/dL (1.6-2.6); Osmolality,Calculated 283 (280-300); Phosphorous 2.5 mg/dL (2.7-4.5); Potassium 4.3 mEq/L (3.5-5.1); Sodium 134 mEq/L (136-145); eGFR For Non-African Americans > 60 (> 60)
[2018-06-06] MEDS: *HR* Heparin 5,000 UNIT/ML VIAL SQ SCH ×3 (06:01→22:09)
[2018-06-06] MEDS: ALPRAZolam 0.5 MG TABLET PO SCH ×4 (09:19→20:23)
[2018-06-06] MEDS: tiZANidine 4 MG TABLET PO SCH ×3 (09:19→20:23)
[2018-06-06] MEDS: Doxycycline 100 MG CAPSULE PO SCH (09:19)
[2018-06-06] MEDS: Loratadine 10 MG TABLET PO SCH (09:21)
[2018-06-06] MEDS: Furosemide 20 MG TABLET PO SCH (09:21)
[2018-06-06] MEDS: Gabapentin 300 MG CAPSULE PO SCH ×4 (09:22→20:22)
[2018-06-06] MEDS: Budesonide/Formoterol 160/4.5 1 PUFF INH IH SCH ×2 (10:54→20:02)
[2018-06-06] MEDS: Fluticasone Propionate Nasal 50 MCG/SPRAY BOTTLE NS SCH (10:59)
--- NOTE | 2018-06-06 14:36 | Internal Med Progress Note ---
Hospitalist Progress Note - Encounter Date of Encounter: 06/06/18 Time of Encounter: 14:34 - Subjective Interval History: no acute changes over night. seen and examined at bedside today. Patient continuing to report chest pressure/discomfort with radiation to the mid-back and left arm with associated shortness of breath. She describes this sensation as intermittent; it does not worsen with activity and is self limited and resolved without further intervention. She was having hyperhydrosis during my assessment this afternoon. - Exam Vitals: Temp Pulse Resp BP Pulse Ox 98.4 F 79 18 128/78 93 06/06/18 10:47 06/06/18 10:47 06/06/18 10:55 06/06/18 10:47 06/06/18 10:55 Exam: Constitutional: No acute distress, Alert Psych: A&O x 3 HEENT: NCAT, EOMI, Neck: supple Cardio: regular rate and rhythm, +s1s2, no murmurs/rubs/gallops, no obvious JVD Resp: decreased breath sounds throughout and inspiratory and expiratory wheezing Abd: soft, non tender/non distended, positive bowel sounds, no gaurding/reboud/ ridgitity Extremities: no clubbing/cyanosis/edema appreciated Neuro: no focal deficits appreciated Lymph: no cervical/supraclavicular adenopahty apprecitated - Assessment and Plan (1) Acute exacerbation of chronic obstructive pulmonary disease (COPD) Current Visit: Yes Status: Acute Assessment and Plan: 4-week h/o progressing dyspnea; exacerbated with exertion endorses symptoms of orthopnea and dyspnea on exertion -CTA of chest negative for pulmonary embolism and no evidence of consolidation -Continue IV steroids 40 mg every 12 hours and wean as tolerated -continue Duo nebs -Continue Symbicort and Flonase -Troponin negative -respiratory infection panel negative -Currently not needing supplemental oxygen (2) Dyspnea Current Visit: Yes Status: Acute Assessment and Plan: as above (3) Chest pain Current Visit: Yes Status: Acute Assessment and Plan: Reporting chest pain/pressure, and dyspnea; most likely r/t COPD as this pain is reproduceable and worse with cough; consider pleuritic or musculoskeletal cause initial troponin negative; EKG without acute ST-T wave changes concerning for ischemia Stress test last year negative for ischemia or infarct TTE 01/2018 with LVEF 60-65%, moderate diastolic dysfunction, borderline mild PH , no segmental wall motion abnormalities noted. Consult to cardiology; thank you appreciate recommendations (4) Anxiety Current Visit: No Status: Acute Assessment and Plan: per hx continue home meds including her xanax (5) HTN (hypertension) Current Visit: Yes Status: Acute Assessment and Plan: per hx, BP stable resume home meds monitor and adjust PRN (6) HLD (hyperlipidemia) Current Visit: Yes Status: Acute Assessment and Plan: continue statin (7) Obesity (BMI 30.0-34.9) Current Visit: Yes Status: Acute Assessment and Plan: discussed lifestyle changes and dietary modifications (8) GERD (gastroesophageal reflux disease) Current Visit: Yes Status: Acute Assessment and Plan: -reports history of reflux and asks for reflux pill -will start prilosec and give GI cocktail (9) DVT prophylaxis Current Visit: Yes Status: Acute Assessment and Plan: continue SC heparin - Time Spent with Patient Total time spent is greater than 50% in coordination of care (as documented) at patient's floor/unit and/or counseling patient: less than 15 minutes Plan of Care Discussed with: patient Internal Medicine: Result - Labs CBC & Chem 7: 06/06/18 04:47 06/06/18 04:47 Labs: Short CBC 06/06/18 Range/Units 04:47 WBC 9.7 (4.3-11.1) K/mcL Hgb 13.1 (11.5-15.4) g/dL Hct 40.2 (35.3-44.9) % Plt Count 227 (140-400) K/mcL Neutrophils # 8.7 (1.6-8.9) K/mcL BMP 06/06/18 04:47 Sodium 134 L Potassium 4.3 Chloride 105 Carbon Dioxide 23 BUN 9 Creatinine 0.73 Glucose 218 H Calcium 8.9 - ABG Interpretation ABG results: PT/INR, D-dimer D-Dimer 556 ng/mLFEU (0-500) H 06/05/18 13:10 Consult Discharge Plan - Plan Referrals: Jarod Hilton MD [Primary Care Provider] - 06/13/18 10:15 am (2) Dyspnea Qualifiers: Dyspnea type: dyspnea on exertion Qualified Code(s): R06.09 - Other forms of dyspnea (3) Chest pain Qualifiers: Chest pain type: unspecified Qualified Code(s): R07.9 - Chest pain, unspecified (5) HTN (hypertension) Qualifiers: Hypertension type: essential hypertension Qualified Code(s): I10 - Essential (primary) hypertension (6) HLD (hyperlipidemia) Qualifiers: Hyperlipidemia type: mixed hyperlipidemia Qualified Code(s): E78.2 - Mixed hyperlipidemia (8) GERD (gastroesophageal reflux disease) Qualifiers: Esophagitis presence: esophagitis presence not specified Qualified Code(s): K21.9 - Gastro-esophageal reflux disease without esophagitis
--- NOTE | 2018-06-06 16:05 | Cardiology Consult Note ---
<AquilinoYareli J - Last Filed: 06/06/18 16:10> Date of Encounter: 06/06/18 Time of Encounter: 15:30 Assessment and Plan (1) Acute exacerbation of chronic obstructive pulmonary disease (COPD) Current Visit: Yes Status: Acute Per cardiology: -Admitted with acute COPD exacerbation. -Being treated with IV steroids. -Management per primary service. (2) Chest pain Current Visit: No Status: Acute Per cardiology: -Reported atypical, reproduceable chest pain. Suspect chest pain pleuritic with musculoskeletal componenet also. -Troponin negative x1. -ECG with no acute ischemic changes. -[facility] 2014 for abnormal stress, [facility] with non-obstructive CAD. -Stress test 04/2017 negative for ischemia or infarct. -TTE 01/2018 with LVEF 60-65%, moderate diastolic dysfunction, borderline mild PH , no segmental wall motion abnormalities noted. -On statin. NOt on ASA due to "makes breathing worse." Not on BB due to acute COPD exacerbation. -Will discuss and review with , suspect outpatient follow up. Qualifiers: Chest pain type: chest pain on breathing Qualified Code(s): R07.1 - Chest pain on breathing; R07.81 - Pleurodynia Discussion w patient/family: The assessment and plan as outlined above was discussed with the patient who expressed understanding and agreement. All questions were answered. Thank you for involving us in the care of your patient. Please call with any questions. Discussed and reviewed with . History of Present Illness Consult date: 06/06/18 Requesting physician: Red Gomez Consult reason: chest pain Chief complaint: shortness of breath History of present illness: Ms. Ramos is a 57 year old female with a relevant past medical history of asthma , COPD, GERD, anxiety, HTN, HLD, depression, insomnia, chronic back and neck pain, [facility] 2014 outside facility with non-obstructive CAD who presented to [facility] with complaints of increased shortness of breath, being treated for COPD exacerbation. Today, patient complained of some chest pain and cardiology was consulted. Patient States pain starts in back and radiates into chest. Patient states chest pain increased with deep breathing and cough. Denies exertional chest pain. Past Med Surg Social Fam HX - Past Medical History Attestation: Yes The following information was validated with the patient. Source: patient, old records reviewed Medical history: asthma, COPD, hyperlipidemia, hypertension Additional medical history: seasonal allergies Psychiatric history: anxiety, depression - Past Surgical History Surgical History: cholecystectomy, hysterectomy, orthopedic, other, sinus surgery, CHARBEL/BSO, other Additional surgical history: heart cath x 3. bronch - Social History Smoking Status: Never smoker Smokeless Tobacco Status: No Alcohol use: none Drug use: none - Family History Mother Living Status: Still Living Hx Family Cardiac Disorders: Yes (Hypertension and arrhythmia) Hx Family Endocrine Disorder: Yes (Diabetes) Brother Hx Family Cardiac Disorders: Yes (major NE at 39.) Father Adopted: No Living Status: Hx Family Cardiac Disorders: No Hx Family Respiratory Disorders: Yes (Lung Ca, States "on oxygen and nebulizer. Smoker) Hx Family Cancer: Yes Hx Family GI Disorders: No Hx Family Endocrine Disorder: No Hx Family Neuromuscular Disorders: No Hx Family Neurologic Disorders: No Hx Family HEENT Disorders: Yes (States "sinus issues") Hx Family Autoimmune Disorders: No Medications and Allergies FLUoxetine HCl [Prozac] 20 mg PO QAM 05/07/16 [History] ALPRAZolam [Xanax 0.5 MG Tablet] 0.5 mg PO QID 11/21/16 [History] Furosemide [Lasix] 20 mg PO DAILY PRN 11/21/16 [History] Ipratropium/Albuterol Neb [Duoneb] 3 ml IH Q6H PRN 11/21/16 [History] Gabapentin [Neurontin] 300 mg PO QID 12/10/16 [History] Losartan Potassium [Cozaar] 100 mg PO DAILY 05/12/17 [History] Nitroglycerin [Nitrostat] 0.4 mg SL Q5M PRN 05/12/17 [History] Atorvastatin [Lipitor] 40 mg PO HS #30 tab 05/14/17 [Rx] Budesonide/Formoterol 160/4.5 [Symbicort 160/4.5] 2 puff IH BIDR #1 05/14/17 [Rx ] Albuterol Sulfate [Albuterol Inhaler] 2 puff IH Q4HR PRN #1 hfa.aer.[id number] 08/16/17 [Rx] Cetirizine HCl [Zyrtec] 10 mg PO DAILY #90 tablet 05/16/18 [Rx] Fluticasone Propionate Nasal [Flonase] 1 - 2 spray NS DAILY #1 bottle 05/16/18 [ Rx] Tizanidine HCl [Zanaflex] 4 mg PO TID 05/16/18 [History] 3 Allergy/AdvReac Type Severity Reaction Status Date / Time aspirin Allergy Mild Wheezing Verified 03/23/18 11:09 milk Allergy See Verified 03/23/18 11:09 Comments Pneumococcal Vaccine AdvReac Anxiety Verified 03/23/18 11:09 quetiapine [From Seroquel] AdvReac Agitated Verified 03/23/18 11:09 All Systems Review: The remainder of the systems were reviewed and are negative - Cardiovascular Cardiovascular: as per HPI, chest pain at rest, dyspnea at rest, dyspnea on exertion Physical Examination Vital Signs, Last 4 Hours Temp Pulse Resp BP Pulse Ox 06/06/18 15:40 98.3 F 85 15 127/61 93 General: Conversant, No Apparent Distress HEENT: Atraumatic, Normocephaly, Mucus Membranes Moist Neck: No JVD, Normal carotid pulses Cardiac: Reg Rate and Rhythm, Normal S1 and S2, No Murmur Lungs: Other (Lung sounds with inspiratory and expiratory wheezes noted throughout. ) Neuro: Alert and responsive, No focal deficits noted Abdomen: Soft, Non-Tender Skin: No rashes noted on visualized skin Musculoskeletal: Other (Chest pain reproduceable with palpation. ) Extremities: No Clubbing, No Cyanosis, No Edema, Normal Pulses Results 06/06/18 04:47 06/06/18 04:47 Lab Results Active Medications Acetaminophen (Tylenol) 650 mg PO Q6HR PRN PRN Reason: mild to moderate pain Stop: 12/05/18 22:58 Hydrocodone Bitart/Acetaminophen ([place] 5-325 Mg) 1 tab PO Q6HR PRN PRN Reason: Moderate Pain Stop: 12/05/18 22:59 Last Admin: 06/06/18 10:58 Dose: 1 tab Albuterol/Ipratropium (Duoneb) 3 ml IH [id number] PRN PRN Reason: Shortness Of Breath/Wheezing Stop: 12/05/18 22:01 Alprazolam (Xanax) 0.5 mg PO QID WILEY PRN Reason: Protocol Stop: 12/05/18 17:01 Last Admin: 06/06/18 13:16 Dose: 0.5 mg Atorvastatin Calcium (Lipitor) 40 mg PO HS WILEY Stop: 12/05/18 21:01 Last Admin: 06/05/18 22:19 Dose: 40 mg Budesonide/Formoterol Fumarate (Symbicort) 2 puff IH BIDR WILEY PRN Reason: Protocol Stop: 12/05/18 22:01 Last Admin: 06/06/18 10:54 Dose: 2 puff Doxycycline Hyclate (Doxycycline) 100 mg PO BID WILEY Stop: 12/05/18 21:01 Last Admin: 06/06/18 09:19 Dose: 100 mg Fluoxetine HCl (Prozac) 20 mg PO HS WILEY PRN Reason: Protocol Stop: 12/05/18 21:01 Last Admin: 06/05/18 22:19 Dose: 20 mg Fluticasone Propionate (Flonase) 50 mcg NS DAILY WILEY PRN Reason: Protocol Stop: 12/06/18 09:01 Last Admin: 06/06/18 10:59 Dose: 50 mcg Furosemide (Lasix) 20 mg PO DAILY PRN PRN Reason: Edema Stop: 12/05/18 16:20 Furosemide (Lasix) 20 mg PO DAILY [facility]LEY Stop: 12/06/18 09:01 Last Admin: 06/06/18 09:21 Dose: 20 mg Gabapentin (Neurontin) 300 mg PO QID WILEY Stop: 12/05/18 17:01 Last Admin: 06/06/18 13:15 Dose: 300 mg Heparin Sodium (Porcine) (Heparin) 5,000 unit SQ Q8HCO WILEY Stop: 12/05/18 22:01 Last Admin: 06/06/18 15:23 Dose: 5,000 unit Loratadine (Claritin) 10 mg PO DAILY [facility] Stop: 12/06/18 09:01 Last Admin: 06/06/18 09:21 Dose: 10 mg Losartan Potassium (Cozaar) 100 mg PO DAILY [facility] Stop: 12/06/18 09:01 Last Admin: 06/06/18 09:20 Dose: 100 mg Methylprednisolone (Solu-Medrol) 40 mg IVP Q8HR [facility] Stop: 12/06/18 00:01 Last Admin: 06/06/18 15:23 Dose: 40 mg Naloxone HCl (Narcan) 0.4 mg IVP Q2MIN PRN PRN Reason: SEE COMMENTS Stop: 12/05/18 16:17 Omeprazole (Prilosec) 40 mg PO DAILY@0630 [facility] PRN Reason: Protocol Stop: 12/07/18 06:31 Tizanidine HCl (Zanaflex) 4 mg PO TID [facility] Stop: 12/05/18 21:01 Last Admin: 06/06/18 15:22 Dose: 4 mg Laboratory Tests 06/05/18 06/06/18 06/06/18 13:10 04:47 04:47 Hgb 13.1 Creatinine 0.73 Troponin I < 0.03 - Imaging and Cardiology Chest Xray: report reviewed Stress Test: report reviewed Echo: report reviewed Cardiac cath: report reviewed - EKG Interpretation EKG results cardiology: personally reviewed (ECG with SR, HR 83. Non-specific T wave abnormalities noted, similar to previous ECGs.), other (Telemetry reveiwed with average HR previous 12 hours noted to be 81, SR. PVCs, PACs noted. Short run of atrial tachycardia noted.) Consult Discharge Plan - Plan Referrals: Jarod Hilton MD [Primary Care Provider] - 06/13/18 10:15 am < A - Last Filed: 06/06/18 17:10> Date of Encounter: 06/06/18 - Attending Attestation Patient with signs and symptoms of COPD exacerbation. Need bronchodilators and steroids. No acute cardiac intervention at this time. Assessment and Plan Discussion w patient/family: The assessment and plan as outlined above was discussed with the patient and/or family members who expressed understanding and agreement. All questions were answered. Thank you for involving us in the care of your patient. Please call with any questions. History of Present Illness History of present illness: Ms. Ramos is a 57 year old female All Systems Review: The remainder of the systems were reviewed and are negative Physical Examination Vital Signs, Last 4 Hours Temp Pulse Resp BP Pulse Ox 06/06/18 16:08 98.1 F 83 16 114/70 94 06/06/18 15:40 98.3 F 85 15 127/61 93 Results 06/06/18 04:47 06/06/18 04:47 Lab Results 06/06/18 06/06/18 04:47 04:47 WBC 9.7 Hgb 13.1 Hct 40.2 Plt Count 227 Sodium 134 L Potassium 4.3 Chloride 105 Carbon Dioxide 23 BUN 9 Creatinine 0.73 Glucose 218 H Calcium 8.9 Magnesium 1.9
--- NOTE | 2018-06-06 17:26 | Electrocardiograph Report ---
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
[2018-06-06] MEDS: FLUoxetine 20 MG CAPSULE PO SCH (20:23)
[2018-06-06] MEDS ORDERED: Melatonin 3 MG TABLET PO ONE (22:43)
[2018-06-07] MEDS: *HR* Heparin 5,000 UNIT/ML VIAL SQ SCH ×3 (05:43→21:59)
[2018-06-07] MEDS: MethylPREDNISolone 40 MG/ML VIAL IVP SCH ×2 (05:43→17:09)
[2018-06-07] MEDS: Budesonide/Formoterol 160/4.5 1 PUFF INH IH SCH ×2 (08:19→19:54)
[2018-06-07] MEDS: tiZANidine 4 MG TABLET PO SCH ×3 (09:16→20:54)
[2018-06-07] MEDS: ALPRAZolam 0.5 MG TABLET PO SCH ×4 (09:16→20:54)
[2018-06-07] MEDS: Loratadine 10 MG TABLET PO SCH (09:17)
[2018-06-07] MEDS: Fluticasone Propionate Nasal 50 MCG/SPRAY BOTTLE NS SCH (09:17)
[2018-06-07] MEDS: Gabapentin 300 MG CAPSULE PO SCH ×4 (09:17→20:54)
[2018-06-07] MEDS: Furosemide 20 MG TABLET PO SCH (09:17)
[2018-06-07] MEDS: *HR* HYDROcodone/Acet 5/325 mg TABLET PO PRN ×3 (09:21→21:59)
--- NOTE | 2018-06-07 12:13 | Internal Med Progress Note ---
Hospitalist Progress Note - Encounter Date of Encounter: 06/07/18 Time of Encounter: 12:08 - Subjective Interval History: No acute changes over night. Seen and examined at bedside today. Chest pressure/discomfort has subsided. She is continuing to report wheezing and shortness of breath with ambulation. - Exam Vitals: Temp Pulse Resp BP Pulse Ox 98.0 F 65 18 141/74 95 06/07/18 07:06 06/07/18 07:06 06/07/18 08:14 06/07/18 07:06 06/07/18 08:14 Exam: Constitutional: No acute distress, Alert Psych: A&O x 3 HEENT: NCAT, EOMI, Neck: supple Cardio: regular rate and rhythm, +s1s2, no murmurs/rubs/gallops, no obvious JVD Resp: decreased breath sounds throughout and fine expiratory wheezing Abd: soft, non tender/non distended, positive bowel sounds, no gaurding/reboud/ ridgitity Extremities: no clubbing/cyanosis/edema appreciated Neuro: no focal deficits appreciated Lymph: no cervical/supraclavicular adenopahty apprecitated - Assessment and Plan (1) Acute exacerbation of chronic obstructive pulmonary disease (COPD) Current Visit: Yes Status: Acute (2) Dyspnea Current Visit: Yes Status: Acute (3) Chest pain Current Visit: Yes Status: Acute Assessment and Plan: Reporting chest pain/pressure, and dyspnea; most likely r/t COPD as this pain is reproduceable and worse with cough; consider pleuritic or musculoskeletal cause initial troponin negative; EKG without acute ST-T wave changes concerning for ischemia Stress test last year negative for ischemia or infarct TTE 01/2018 with LVEF 60-65%, moderate diastolic dysfunction, borderline mild PH , no segmental wall motion abnormalities noted. Consult to cardiology; thank you appreciate recommendations (4) Anxiety Current Visit: No Status: Acute (5) HTN (hypertension) Current Visit: Yes Status: Acute (6) HLD (hyperlipidemia) Current Visit: Yes Status: Acute (7) Obesity (BMI 30.0-34.9) Current Visit: Yes Status: Acute (8) GERD (gastroesophageal reflux disease) Current Visit: Yes Status: Acute (9) DVT prophylaxis Current Visit: Yes Status: Acute - Summary of Assessment and Plan Summary of Assessment and Plan: Admitted with a 4-week h/o dyspnea worse with exertion. H/o COPD, has had multiple exacerbations recently and has received oral steroids and ABX both ciprofloxacin and azithromycin without improvement. This is what prompted admission. She has been treated for a COPD exacerbation and has been receiving IV steroids and aerosol treatment. Respiratory status is improving. Resting on RA, but is continuing to have mild exertional dyspnea. She states today that she does not feel that she will be able to provider care for herself or her children if she discharges. She is concerned that she will be readmitted tonight if she were to be discharged. I informed her that we will continue with inpatient treatment today and overnight and consider d/c in the A.m is she continues to improve. DIAGNOSIS: 1- acute exacerbation of chronic obstructive pulmonary disease- Dyspnea persists; continue with IV steroids, aerosols, and PRN O2 for respiratory support 7-llbbvum-lvjkxlck, fine Exp wheezing today B/L AP&L; Remains on RA without distress at rest 3-chest pain-resolved; cardio consulted f/u outpatient; no further interventions warranted at this time. See note above 4-anxiety- not anxious at this time 3-wqtfnicipxov-zjagze, continue anti-HTN meds 4-VWR-pwbvop 7-obesity- Discussed lifestyle modifications 7-AHGW-olceoyvd PPI 9-DVT prophylaxis- SC heparin - Time Spent with Patient Total time spent is greater than 50% in coordination of care (as documented) at patient's floor/unit and/or counseling patient: less than 15 minutes Plan of Care Discussed with: patient Internal Medicine: Result - Labs CBC & Chem 7: 06/06/18 04:47 06/06/18 04:47 - ABG Interpretation ABG results: PT/INR, D-dimer D-Dimer 556 ng/mLFEU (0-500) H 06/05/18 13:10 Consult Discharge Plan - Plan Referrals: Jarod Hilton MD [Primary Care Provider] - 06/13/18 10:15 am (2) Dyspnea Qualifiers: Dyspnea type: dyspnea on exertion Qualified Code(s): R06.09 - Other forms of dyspnea (3) Chest pain Qualifiers: Chest pain type: unspecified Qualified Code(s): R07.9 - Chest pain, unspecified (5) HTN (hypertension) Qualifiers: Hypertension type: essential hypertension Qualified Code(s): I10 - Essential (primary) hypertension (6) HLD (hyperlipidemia) Qualifiers: Hyperlipidemia type: mixed hyperlipidemia Qualified Code(s): E78.2 - Mixed hyperlipidemia (8) GERD (gastroesophageal reflux disease) Qualifiers: Esophagitis presence: esophagitis presence not specified Qualified Code(s): K21.9 - Gastro-esophageal reflux disease without esophagitis
[2018-06-07] MEDS: FLUoxetine 20 MG CAPSULE PO SCH (20:54)
[2018-06-08] MEDS: MethylPREDNISolone 40 MG/ML VIAL IVP SCH (05:20)
[2018-06-08] MEDS: *HR* Heparin 5,000 UNIT/ML VIAL SQ SCH (05:20)
[2018-06-08 07:18] VITALS: BP 149/77
[2018-06-08] MEDS: tiZANidine 4 MG TABLET PO SCH (08:10)
[2018-06-08] MEDS: Fluticasone Propionate Nasal 50 MCG/SPRAY BOTTLE NS SCH (08:10)
[2018-06-08] MEDS: Gabapentin 300 MG CAPSULE PO SCH (08:10)
[2018-06-08] MEDS: ALPRAZolam 0.5 MG TABLET PO SCH (08:10)
[2018-06-08] MEDS: Loratadine 10 MG TABLET PO SCH (08:10)
[2018-06-08] MEDS: Furosemide 20 MG TABLET PO SCH (08:10)
--- NOTE | 2018-06-08 09:05 | Discharge Summary ---
- NOTES TO OUTPATIENT PROVIDER Notes to Outpatient Provider: hay f/u with pulmonology Date of Encounter: 06/08/18 Time of Encounter: 09:00 - Discharge Diagnosis (1) Acute exacerbation of chronic obstructive pulmonary disease (COPD) Priority: Primary Status: Acute Assessment and Plan: 4-week h/o progressing dyspnea; exacerbated with exertion endorses symptoms of orthopnea and dyspnea on exertion -CTA of chest negative for pulmonary embolism and no evidence of consolidation -Continue IV steroids 40 mg every 12 hours and wean as tolerated -continue Duo nebs -Continue Symbicort and Flonase -Troponin negative -respiratory infection panel negative -Currently not needing supplemental oxygen 06/08--admitted with acute exacerbation of COPD, clinically, patient returning to baseline as of today. Lung sounds are clear/diminished throughout without wheezing. Patient reports that she is no longer having exertional dyspnea and feels that she is ready for discharge at this time. Upon discharge she will be sent with a five-day course of oral steroids. She has been informed of follow- up with pulmonology as scheduled and to follow-up with PCP within one week. Resume all COPD medications upon discharge. She is instructed to return to the ED showed shortness of breath and/or wheezing return (2) Dyspnea Priority: Secondary Status: Acute Qualifiers: Dyspnea type: dyspnea on exertion Qualified Code(s): R06.09 - Other forms of dyspnea (3) Chest pain Priority: Secondary Status: Acute Qualifiers: Chest pain type: unspecified Qualified Code(s): R07.9 - Chest pain, unspecified (4) Anxiety Priority: Secondary Status: Acute (5) HTN (hypertension) Priority: Secondary Status: Acute Qualifiers: Hypertension type: essential hypertension Qualified Code(s): I10 - Essential (primary) hypertension (6) HLD (hyperlipidemia) Priority: Secondary Status: Acute Qualifiers: Hyperlipidemia type: mixed hyperlipidemia Qualified Code(s): E78.2 - Mixed hyperlipidemia (7) Obesity (BMI 30.0-34.9) Priority: Secondary Status: Acute (8) GERD (gastroesophageal reflux disease) Priority: Secondary Status: Acute Qualifiers: Esophagitis presence: esophagitis presence not specified Qualified Code(s) : K21.9 - Gastro-esophageal reflux disease without esophagitis (9) DVT prophylaxis Priority: Secondary Status: Acute Hospital course: Ms. Ramso is a 57 year old female, she was Admitted with a 4-week h/o dyspnea worse with exertion, wheezing and cough. H/o COPD, has had multiple exacerbations recently and has received oral steroids and ABX both ciprofloxacin and azithromycin without improvement. This is what prompted admission. She was treated with IV steroids and scheduled aerosols and has gradually improved. Patient is now on room air and back to baseline. She is being discharged on oral steroid burst. No changes made to COPD medications. Patient reports that she has follow-up with pulmonology. Chest tube he thorough she was given a follow-up within 2-3 weeks upon discharge. She is instructed to follow-up with PCP within one week. Discharge discussed with: patient, nurse Time spent discussing smoking cessation with patient: 3 to 10 minutes - Time Spent with Patient Total time spent providing and/or coordinating discharge services: Less than 30 minutes - Discharge Medications Home Medications: FLUoxetine HCl [Prozac] 20 mg PO QAM 05/07/16 [History] ALPRAZolam [Xanax 0.5 MG Tablet] 0.5 mg PO QID 11/21/16 [History] Furosemide [Lasix] 20 mg PO DAILY PRN 11/21/16 [History] Ipratropium/Albuterol Neb [Duoneb] 3 ml IH Q6H PRN 11/21/16 [History] Gabapentin [Neurontin] 300 mg PO QID 12/10/16 [History] Losartan Potassium [Cozaar] 100 mg PO DAILY 05/12/17 [History] Nitroglycerin [Nitrostat] 0.4 mg SL Q5M PRN 05/12/17 [History] Atorvastatin [Lipitor] 40 mg PO HS #30 tab 05/14/17 [Rx] Budesonide/Formoterol 160/4.5 [Symbicort 160/4.5] 2 puff IH BIDR #1 05/14/17 [Rx ] Albuterol Sulfate [Albuterol Inhaler] 2 puff IH Q4HR PRN #1 hfa.aer.[id number] 08/16/17 [Rx] Cetirizine HCl [Zyrtec] 10 mg PO DAILY #90 tablet 05/16/18 [Rx] Fluticasone Propionate Nasal [Flonase] 1 - 2 spray NS DAILY #1 bottle 05/16/18 [ Rx] Tizanidine HCl [Zanaflex] 4 mg PO TID 05/16/18 [History] predniSONE [PredniSONE] 40 mg PO DAILY 5 Days #10 tablet 06/08/18 [Rx] Allergies/Adverse Reactions: 3 Allergy/AdvReac Type Severity Reaction Status Date / Time aspirin Allergy Mild Wheezing Verified 03/23/18 11:09 milk Allergy See Verified 03/23/18 11:09 Comments Pneumococcal Vaccine AdvReac Anxiety Verified 03/23/18 11:09 quetiapine [From Seroquel] AdvReac Agitated Verified 03/23/18 11:09 Date of admission: 06/05/18 15:50 Primary care physician: Jarod Hilton MD Consults: 06/05/18 16:16 Consult to Nurse Navigator [CONS] Routine Comment: 06/06/18 17:12 Consult to Cardiology [CONS] Routine Comment: Consulting Provider: [facility] [place] Reason for Consult: chest pain Time Notified: 17:13 Call Completed: Yes Discharging clinician: Red Gomez Anticipated date of discharge: 06/08/18 - Constitutional Vitals: Temp Pulse Resp BP Pulse Ox 97.8 F 63 15 149/77 96 06/08/18 07:17 06/08/18 07:17 06/08/18 07:17 06/08/18 07:17 06/08/18 07:17 Exam: Constitutional: No acute distress, Alert Psych: A&O x 3 HEENT: NCAT, EOMI, Neck: supple Cardio: regular rate and rhythm, +s1s2, no murmurs/rubs/gallops, no obvious JVD Resp: Clear/diminished throughout bilaterally AP and L Abd: soft, non tender/non distended, positive bowel sounds, no gaurding/reboud/ ridgitity Extremities: no clubbing/cyanosis/edema appreciated Neuro: no focal deficits appreciated Lymph: no cervical/supraclavicular adenopahty apprecitated - Head Head exam: Present: atraumatic, normocephalic - Eye Eye exam: Present: PERRL, conjuntiva pink, sclera anicteric Pupils: Present: PERRL - Neck Neck exam general surgery: Present: supple, trachea midline. Absent: lymphadenopathy - Respiratory Respiratory exam: Present: decreased breath sounds, CTAB, prolonged expiratory phase. Absent: accessory muscle use, rales, respiratory distress, rhonchi, wheezes, tachypnea - Cardiovascular Cardiovascular exam: Present: RRR, +S1, +S2. Absent: diastolic murmur, gallop, rubs, systolic murmur - GI/Abdominal GI/Abdominal exam: Present: normal bowel sounds, soft, no peritoneal signs. Absent: distended, tenderness - Extremities Exam Extremities exam: Present: warm, radial pulses palpable and symmetrical. Absent : calf tenderness, cyanotic, pedal edema - Neurological Exam Neurological exam: Present: CN II-XII intact, oriented X3, no focal deficits. Absent: pronater drift, facial droop, speech deficit - Skin Skin exam: Present: dry, intact - Patient Status Disposition: Home, Self-Care Condition: Fair Functional capacity at discharge: independent ambulation Overall status at discharge: patient is progressing back to baseline - Discharge Instructions Follow Up With: [facility] [Provider Group] - 06/26/18 7:30 am Jarod Hilton MD [Primary Care Provider] - 06/13/18 10:15 am - Diet and Activity Activity: increase activity as tolerated, resume usual activities as tolerated Diet: advance to your usual diet
[2018-06-08] MEDS: Budesonide/Formoterol 160/4.5 1 PUFF INH IH SCH (10:52)
== END 2018-06-08 13:25 | disposition home or self-care (01) ==
LOC: 3BNU 11:44 → EMEROOARM 11:44 → SUATTDRO 15:50 → 3BNU 17:13
PROVIDERS: ADMIT Student in an Organized Health Care Education/Training Program; ATTEND Internal Medicine

== ENCOUNTER 2019-05-03 12:02 | Observation (INO) ==
[2019-05-03] MEDS ORDERED: Aspirin 81 MG TAB.CHEW PO ONE (12:14)
[2019-05-03] MEDS ORDERED: Ipratropium/Albuterol Neb 3 ML IH ONE (12:28)
[2019-05-03] MEDS: Nitroglycerin 0.4 MG TAB.SUBL SL PRN ×2 (12:30→12:35)
[2019-05-03 12:47] LABS: Basophils # 0.1 K/mcL (0.0-0.2); Basophils % 0.7 %; Eosinophils # 0.2 K/mcL (0.0-0.6); Eosinophils % 1.4 %; Hemoglobin 12.7 g/dL (11.5-15.4); Immature Granulocytes % 1.7 % (0-4); Lymphocytes # 4.2 K/mcL (0.6-4.6); Lymphocytes % 37.8 %; Mean Corpuscular HGB Conc 31.8 g/dL (31.6-35.5); Mean Corpuscular Hemoglobin 26.4 pg (28.0-33.3); Mean Corpuscular Volume 83.2 fL (83.0-100.0); Mean Platelet Volume 10.6 fL (9.4-12.4); Monocytes # 0.7 K/mcL (0.0-1.3); Monocytes % 6.4 %; Neutrophils # 5.8 K/mcL (1.6-8.9); Platelet Count 257 K/mcL (140-400); Red Blood Count 4.81 M/mcL (3.82-4.97); Red Cell Distribution Width 14.5 % (11.5-14.5); White Blood Count 11.1 K/mcL (4.3-11.1)
[2019-05-03 13:04] LABS: BUN/Creatinine Ratio 20 (6-26); Blood Urea Nitrogen 17 mg/dL (6-20); Calcium 8.6 mg/dL (8.6-10.3); Carbon Dioxide 26 mEq/L (23-29); Chloride 106 mEq/L (98-107); Glucose 93 mg/dL (70-105); Osmolality,Calculated 293 (280-300); Potassium 3.4 mEq/L (3.5-5.1); Sodium 141 mEq/L (136-145); eGFR For African Americans > 60 (> 60); eGFR For Non-African Americans > 60 (> 60)
[2019-05-03 13:05] LABS: Troponin I < 0.03 ng/mL (< 0.04)
[2019-05-03] MEDS ORDERED: Ondansetron 4 MG/2 ML VIAL IVP ONE (14:08)
[2019-05-03] MEDS ORDERED: Nitroglycerin 25 MG/250 ML INFUS..BTL IVC SCH (14:15)
[2019-05-03] MEDS ORDERED: Naloxone 0.4 MG/ML INJ IVP PRN (16:56)
[2019-05-03] MEDS ORDERED: Ondansetron ODT 4 MG TAB.RAPDIS SL PRN (16:56)
[2019-05-03] MEDS ORDERED: Isovue-370 500 ML BOTTLE IVP ONE (17:34)
[2019-05-03] MEDS ORDERED: Fluticasone Propionate Nasal 50 MCG/SPRAY BOTTLE NS PRN (18:14)
[2019-05-03 18:31] LABS: Chol/HDL Ratio 3.5 (0-4.9)
[2019-05-03 18:32] LABS: Albumin 3.6 g/dL (3.5-5.7); Albumin/Globulin Ratio 1.6 (1.1-2.2); Bilirubin,Direct 0.1 mg/dL (0.0-0.2); Bilirubin,Indirect 0.3 mg/dL (0.0-1.2); Bilirubin,Total 0.4 mg/dL (0.3-1.0); Globulin 2.2 g/dL (2.4-3.5); Total Protein 5.8 g/dL (6.4-8.9)
[2019-05-03 18:49] LABS: Bilirubin,Urine Negative (Negative); Blood,Urine Negative (Negative); Clarity,Urine Clear (Clear); Color,Urine Yellow (Yellow); Glucose,Urine (UA) Normal (Normal); Ketones,Urine Negative (Negative); Leukocyte Esterase,Urine Negative (Negative); Nitrite,Urine Negative (Negative); Protein,Urine Negative (Neg-Trace); Urobilinogen,Urine Normal (Normal)
[2019-05-03 19:06] LABS: Amphetamine Screen,Urine Negative ng/mL (Cutoff=1000); Barbiturate Screen,Urine Negative ng/mL (Cutoff=200); Benzodiazepines Screen,Urine Positive ng/mL (Cutoff=200); Cannabinoid Screen,Urine Negative ng/mL (Cutoff = 50); Cocaine Screen,Urine Negative ng/mL (Cutoff= 300); Opiate Screen,Urine Negative ng/mL (Cutoff=300); Phencyclidine Screen,Urine Negative ng/mL (Cutoff=25)
[2019-05-03] MEDS: Budesonide/Formoterol 160/4.5 1 PUFF INH IH SCH (20:02)
[2019-05-03] MEDS ORDERED: ALPRAZolam 0.5 MG TABLET PO SCH (21:00)
[2019-05-03] MEDS ORDERED: DEXAMETHASONE 6 MG PO SCH (21:00)
[2019-05-03] MEDS ORDERED: FLUoxetine 20 MG CAPSULE PO SCH (21:00)
[2019-05-03] MEDS ORDERED: Loratadine 10 MG TABLET PO PRN (21:15)
[2019-05-03] MEDS ORDERED: Nitroglycerin 0.4 MG TAB.SUBL SL PRN (21:15)
[2019-05-03] MEDS ORDERED: Furosemide 20 MG TABLET PO PRN (21:18)
[2019-05-03] MEDS: predniSONE 20 MG TABLET PO SCH (22:18)
[2019-05-04] MEDS: Budesonide/Formoterol 160/4.5 1 PUFF INH IH SCH (08:03)
[2019-05-04] MEDS: ALPRAZolam 0.5 MG TABLET PO SCH ×2 (08:35→14:17)
[2019-05-04] MEDS: predniSONE 20 MG TABLET PO SCH (08:35)
[2019-05-04 09:20] LABS: Basophils % 0.2 %; Eosinophils % 0.1 %; Hemoglobin 12.8 g/dL (11.5-15.4); Immature Granulocytes % 1.4 % (0-4); Lymphocytes # 1.5 K/mcL (0.6-4.6); Lymphocytes % 15.3 %; Mean Corpuscular Hemoglobin 26.3 pg (28.0-33.3); Mean Corpuscular Volume 82.3 fL (83.0-100.0); Mean Platelet Volume 10.7 fL (9.4-12.4); Monocytes # 0.4 K/mcL (0.0-1.3); Monocytes % 3.6 %; Neutrophils # 7.6 K/mcL (1.6-8.9); Platelet Count 256 K/mcL (140-400); Red Blood Count 4.86 M/mcL (3.82-4.97); Red Cell Distribution Width 14.3 % (11.5-14.5); Segmented Neutrophils % 79.4 %; White Blood Count 9.6 K/mcL (4.3-11.1)
[2019-05-04 09:40] LABS: BUN/Creatinine Ratio 15 (6-26); Blood Urea Nitrogen 12 mg/dL (6-20); Calcium 8.6 mg/dL (8.6-10.3); Carbon Dioxide 27 mEq/L (23-29); Chloride 104 mEq/L (98-107); Glucose 193 mg/dL (70-105); Osmolality,Calculated 291 (280-300); Potassium 3.8 mEq/L (3.5-5.1); Sodium 138 mEq/L (136-145); eGFR For African Americans > 60 (> 60); eGFR For Non-African Americans > 60 (> 60)
[2019-05-04] MEDS ORDERED: Ipratropium/Albuterol Neb 3 ML ONE (10:53)
[2019-05-04] MEDS: Ipratropium/Albuterol Neb 3 ML IH SCH ×2 (11:04→15:23)
[2019-05-04 15:27] VITALS: BP 146/90
[2019-05-05] MEDS ORDERED: predniSONE 20 MG TABLET PO SCH ×2 (09:00→10:45)
== END 2019-05-04 18:10 | disposition home or self-care (01) ==
LOC: 2NENU 12:02 → EMEROOARM 12:02 → SUATTDRO 15:32 → 2NENU 16:23
PROVIDERS: ADMIT Internal Medicine; ATTEND Student in an Organized Health Care Education/Training Program

== ENCOUNTER 2022-06-03 11:29 | Observation (INO) ==
[2022-06-03] MEDS ORDERED: Ipratropium/Albuterol Neb 3 ML IH ONE (12:40)
[2022-06-03 12:41] LABS: Basophils # 0.1 K/mcL (0.0-0.2); Basophils % 0.6 %; Eosinophils # 0.1 K/mcL (0.0-0.6); Eosinophils % 1.3 %; Hematocrit 43.1 % (35.3-44.9); Hemoglobin 13.5 g/dL (11.5-15.4); Immature Granulocytes % 0.8 % (0-4); Lymphocytes # 1.1 K/mcL (0.6-4.6); Lymphocytes % 9.5 %; Mean Corpuscular HGB Conc 31.3 g/dL (31.6-35.5); Mean Corpuscular Hemoglobin 24.5 pg (28.0-33.3); Mean Corpuscular Volume 78.1 fL (83.0-100.0); Mean Platelet Volume 10.3 fL (9.4-12.4); Monocytes # 0.2 K/mcL (0.0-1.3); Neutrophils # 9.5 K/mcL (1.6-8.9); Platelet Count 261 K/mcL (140-400); Red Blood Count 5.52 M/mcL (3.82-4.97); Red Cell Distribution Width 15.1 % (11.5-14.5); Segmented Neutrophils % 85.8 %; White Blood Count 11.1 K/mcL (4.3-11.1)
[2022-06-03 13:22] LABS: BUN/Creatinine Ratio 24 (6-26); Blood Urea Nitrogen 22 mg/dL (6-20); Calcium 9.3 mg/dL (8.6-10.3); Carbon Dioxide 23 mEq/L (23-29); Chloride 105 mEq/L (98-107); Glucose 148 mg/dL (70-105); Osmolality,Calculated 290 (280-300); Potassium 3.9 mEq/L (3.5-5.1); Sodium 137 mEq/L (136-145); Troponin I < 0.03 ng/mL (< 0.04)
[2022-06-03] MEDS ORDERED: Iopamidol - 370 500 ML MLS IVP ONE (14:30)
[2022-06-03] MEDS ORDERED: Naloxone 0.4 MG/ML INJ IVP PRN (16:36)
[2022-06-03] MEDS ORDERED: Ipratropium/Albuterol Neb 3 ML IH PRN (17:05)
[2022-06-03] MEDS: MethylPREDNISolone 40 MG/ML VIAL IVP SCH (18:36)
[2022-06-03] MEDS: Azithromycin 500 MG in 0.9 % Sodium Chloride 250 ML IVPB SCH (18:43)
[2022-06-03] MEDS ORDERED: Dextrose Gel 15 GM/37.5 ML TUBE PO PRN ×2 (19:02)
[2022-06-03] MEDS ORDERED: *HR* Dextrose 50 % in Water (Syg) 50 ML SYRINGE IVP PRN (19:02)
[2022-06-03] MEDS ORDERED: D5% in Water 1,000 ML IVC PRN (19:02)
[2022-06-03] MEDS: Insulin LISPRO 300 UNITS/3 ML VIAL SUBQ SCH (19:59)
[2022-06-04] MEDS: MethylPREDNISolone 40 MG/ML VIAL IVP SCH ×3 (01:47→17:41)
[2022-06-04 04:28] LABS: Basophils % 0.1 %; Hematocrit 40.8 % (35.3-44.9); Hemoglobin 12.9 g/dL (11.5-15.4); Lymphocytes # 1.1 K/mcL (0.6-4.6); Lymphocytes % 7.9 %; Mean Corpuscular HGB Conc 31.6 g/dL (31.6-35.5); Mean Corpuscular Volume 79.1 fL (83.0-100.0); Mean Platelet Volume 10.5 fL (9.4-12.4); Monocytes # 0.2 K/mcL (0.0-1.3); Monocytes % 1.5 %; Neutrophils # 12.2 K/mcL (1.6-8.9); Platelet Count 257 K/mcL (140-400); Red Blood Count 5.16 M/mcL (3.82-4.97); Segmented Neutrophils % 89.5 %; White Blood Count 13.6 K/mcL (4.3-11.1)
[2022-06-04 04:45] LABS: Potassium 4.3 mEq/L (3.5-5.1)
[2022-06-04] MEDS: Insulin LISPRO 300 UNITS/3 ML VIAL SUBQ SCH ×4 (09:00→21:05)
[2022-06-04 09:25] LABS: Adenovirus Not Detected (Not Detect); Bordetella Pertussis Not Detected (Not Detect); Chlamydophila pneumoniae Not Detected (Not Detect); Coronavirus 229E Not Detected (Not Detect); Coronavirus HKU1 Not Detected (Not Detect); Coronavirus NL63 Not Detected (Not Detect); Coronavirus OC43 Not Detected (Not Detect); Human Metapneumovirus Not Detected (Not Detect); Human Rhinovirus/Enterovirus Not Detected (Not Detect); Influenza A Subtype 2009 H1 Not Detected (Not Detect); Influenza B Not Detected (Not Detect); Mycoplasma pneumoniae Not Detected (Not Detect); Parainfluenza Virus 1 Not Detected (Not Detect); Parainfluenza Virus 2 Not Detected (Not Detect); Parainfluenza Virus 3 Not Detected (Not Detect); Parainfluenza Virus 4 Not Detected (Not Detect); Respiratory Syncytial Virus Not Detected (Not Detect); SARS-CoV-2 Not Detected (Not Detect)
[2022-06-04] MEDS: Ipratropium/Albuterol Neb 3 ML IH SCH ×3 (09:43→21:27)
[2022-06-04] MEDS ORDERED: Acetaminophen 325 MG TABLET PO PRN (10:19)
[2022-06-04] MEDS ORDERED: tiZANidine 4 MG TABLET PO PRN (13:06)
[2022-06-04] MEDS: Gabapentin 300 MG CAPSULE PO SCH ×2 (14:33→21:03)
[2022-06-04] MEDS: risperiDONE 1 MG TABLET PO SCH (14:34)
[2022-06-04] MEDS: hydrALAZINE 25 MG TABLET PO SCH ×2 (14:35→21:03)
[2022-06-04] MEDS: ALPRAZolam 0.5 MG TABLET PO SCH ×2 (17:42→21:05)
[2022-06-04] MEDS: Azithromycin 500 MG in 0.9 % Sodium Chloride 250 ML IVPB SCH (17:45)
[2022-06-04] MEDS: *HR* Heparin 5,000 UNIT/ML VIAL SQ SCH (17:47)
[2022-06-05] MEDS: MethylPREDNISolone 40 MG/ML VIAL IVP SCH (02:35)
[2022-06-05] MEDS: Ipratropium/Albuterol Neb 3 ML IH SCH ×3 (04:08→15:50)
[2022-06-05 06:05] LABS: Basophils % 0.1 %; Hematocrit 38.1 % (35.3-44.9); Hemoglobin 11.8 g/dL (11.5-15.4); Immature Granulocytes % 0.7 % (0-4); Lymphocytes # 1.1 K/mcL (0.6-4.6); Mean Corpuscular Hemoglobin 24.9 pg (28.0-33.3); Mean Corpuscular Volume 80.4 fL (83.0-100.0); Monocytes # 0.6 K/mcL (0.0-1.3); Monocytes % 2.8 %; Neutrophils # 19.5 K/mcL (1.6-8.9); Platelet Count 260 K/mcL (140-400); Red Blood Count 4.74 M/mcL (3.82-4.97); Red Cell Distribution Width 15.6 % (11.5-14.5); Segmented Neutrophils % 91.4 %
[2022-06-05 06:07] LABS: White Blood Count 21.3 K/mcL (4.3-11.1)
[2022-06-05] MEDS: *HR* Heparin 5,000 UNIT/ML VIAL SQ SCH (06:25)
[2022-06-05] MEDS ORDERED: Regadenoson 0.4 MG/5 ML SYRINGE IVP ONE ×2 (06:43→11:00)
[2022-06-05 07:06] LABS: Calcium 8.6 mg/dL (8.6-10.3); Potassium 4.4 mEq/L (3.5-5.1)
[2022-06-05] MEDS: ALPRAZolam 0.5 MG TABLET PO SCH ×2 (08:56→13:10)
[2022-06-05] MEDS: risperiDONE 1 MG TABLET PO SCH (08:59)
[2022-06-05] MEDS ORDERED: MethylPREDNISolone 40 MG/ML VIAL IVP SCH (09:00)
[2022-06-05] MEDS ORDERED: Isosorbide MONOnitrate (24 HR) 30 MG TAB.ER.24H PO SCH (09:00)
[2022-06-05] MEDS ORDERED: Furosemide 20 MG TABLET PO SCH (09:00)
[2022-06-05] MEDS: Insulin LISPRO 300 UNITS/3 ML VIAL SUBQ SCH ×2 (09:00→13:13)
[2022-06-05] MEDS ORDERED: amLODIPine 5 MG TABLET PO SCH (09:00)
[2022-06-05] MEDS ORDERED: Spironolactone 25 MG TABLET PO SCH (09:00)
[2022-06-05] MEDS: hydrALAZINE 25 MG TABLET PO SCH (09:00)
[2022-06-05] MEDS ORDERED: MethylPREDNISolone 40 MG/ML VIAL IVP ONE (12:00)
[2022-06-05 12:36] VITALS: BP 114/73; PULSE 54; TEMP 97.6
[2022-06-05 13:02] LABS: Basophils % 0.1 %; Hematocrit 39.5 % (35.3-44.9); Hemoglobin 12.1 g/dL (11.5-15.4); Immature Granulocytes % 0.7 % (0-4); Lymphocytes # 1.2 K/mcL (0.6-4.6); Lymphocytes % 6.4 %; Mean Corpuscular HGB Conc 30.6 g/dL (31.6-35.5); Mean Corpuscular Hemoglobin 24.8 pg (28.0-33.3); Mean Corpuscular Volume 81.1 fL (83.0-100.0); Mean Platelet Volume 10.7 fL (9.4-12.4); Monocytes # 0.5 K/mcL (0.0-1.3); Monocytes % 2.6 %; Neutrophils # 17.5 K/mcL (1.6-8.9); Platelet Count 261 K/mcL (140-400); Red Blood Count 4.87 M/mcL (3.82-4.97); Red Cell Distribution Width 15.8 % (11.5-14.5); Segmented Neutrophils % 90.2 %; White Blood Count 19.4 K/mcL (4.3-11.1)
[2022-06-05] MEDS: Gabapentin 300 MG CAPSULE PO SCH ×2 (13:11→13:19)
[2022-06-05 17:47] VITALS: O2SAT 93
== END 2022-06-05 17:06 | disposition home or self-care (01) ==
LOC: EMEROOARM 11:29 → 2ANU 11:29 → SUATTDRO 17:27 → 2ANU 18:00
PROVIDERS: ADMIT Internal Medicine; ATTEND Internal Medicine